=== PATIENT | female | born 1965 | race Caucasian/White ===

== ENCOUNTER 2019-11-08 09:09 | Emergency (ER) | payer BC ==
--- NOTE | 2019-11-08 09:30 | EDM.PDOC ---
ED HPI GENERAL MEDICAL PROBLEM - General Chief Complaint: General Stated Complaint: BODY ACHES AND PAIN Time Seen by Provider: 11/08/19 09:30 Source of Information: Reports: Patient History Limitations: Reports: No Limitations - History of Present Illness INITIAL COMMENTS - FREE TEXT/NARRATIVE: 54-year-old female presents to the ED with generalized myalgia in particular pain in the medial aspect of both thighs worse on the right as compared to the left. She feels almost as if the skin hurts or the veins hurt underneath the skin. She describes it as sharp poking and intermittent stabbing type pain. She is known to have neuropathy in her lower extremities. She was diagnosed with type 2 diabetes in May of this year and initially started on metformin which she could not tolerate due to the amount of diarrhea produced. Subsequently she has been using insulin and gradually her symptoms have come under good control and her blood sugars are under excellent control. Blood sugar this morning was 134. She was fine up until Friday 2 days ago when she started developed generalized myalgia in her shoulders back chest wall and lower extremities. Pain is bad enough that she cannot sleep. She did take NyQuil last night which knocked her out for a few hours for sleeping. Denies fever chills nausea or vomiting. Bowel movements are normal. She has a history of recurrent urinary tract infections when the diagnosis of diabetes was made but this seems to have cleared up. The urine is not foul-smelling and she has no dysuria urgency or frequency. She lost approximately 20 pounds of weight during her uncontrolled type 2 diabetes event. Does not feel dizzy or lightheaded. Has not eaten yet today. She has not identified any rashes in her right lower medial thigh. Onset: Sudden Onset Date: 11/06/19 Duration: Day(s):, Getting Worse Location: Reports: Generalized (Neurolyse myalgia with stabbing biting pain suggestive of neurogenic etiology. This is worse on the medial aspect of her right thigh.) Quality: Reports: Ache, Sharp, Stabbing Severity: Moderate Improves with: Reports: None (8 out of 10 Motrin did not help the pain.) Worsens with: Reports: Other Context: Reports: Other (Spontaneous occurrence). Denies: Activity, Exercise (Movement and walking seems to make it slightly worse.), Sick Contact, Trauma Associated Symptoms: Reports: Malaise, Weakness (Due to the pain.). 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: NSAIDS (Primarily ibuprofen with no relief.) Generalized Pain Score (Numeric/FACES): 5 - Related Data Allergies Allergy/AdvReac Type Severity Reaction Status Date / Time metformin Allergy Diarrhea Verified 11/08/19 09:19 Home Meds: Home Meds Acetaminophen/oxyCODONE [Percocet 325-5 MG] 2 each PO Q4H PRN #20 tab 11/08/19 [Rx] Diclofenac Sodium [Voltaren] 75 mg PO BIDMEALS #16 tab.cr 11/08/19 [Rx] Ferrous Sulfate [Iron] 325 mg PO DAILY 11/08/19 [History] Gabapentin [Neurontin] 300 mg PO DAILY 11/08/19 [History] Insulin Glargine,Hum.Rec.Anlog [Candelarioueugeniao Solostarnulfo] 19 unit SQ PCDINNER 11/08/19 [History] Insulin Glargine,Hum.Rec.Anlog [Toujeo Solostar] 23 unit SQ ACBREAKFAST 11/08/19 [History] Losartan/Hydrochlorothiazide [Losartan-HCTZ 100-12.5 MG] 12.5 - 100 mg PO DAILY 11/08/19 [History] Multivit-Min/Iron/Folic/Lutein [Centrum Silver Women Tablet] 1 tab PO DAILY 11/08/19 [History] Omeprazole 20 mg PO DAILY 11/08/19 [History] Sertraline HCl 100 mg PO DAILY 11/08/19 [History] Past Medical History Cardiovascular History: Reports: Hypertension Endocrine/Metabolic History: Reports: Diabetes, Type II (Type 2 diabetes diagnosed in May of this year initially treated with metformin which she could not tolerate due to diarrhea and currently is on insulin therapy with good control of blood sugars. Family history of diabetes.), Vitamin D Deficiency Social & Family History - Living Situation & Occupation Living situation: Reports: Occupation: Unemployed ED ROS GENERAL - Review of Systems Review Of Systems: See Below Constitutional: Reports: Malaise, Weakness, Decreased Appetite, Weight Loss (40 pound weight loss in the last 4 months after onset of diagnosis of type 2 diabetes.). Denies: Fever, Chills HEENT: Reports: No Symptoms Respiratory: Reports: No Symptoms Cardiovascular: Reports: Blood Pressure Problem Endocrine: Reports: No Symptoms GI/Abdominal: Reports: No Symptoms : Reports: Frequency Musculoskeletal: Reports: Muscle Pain, Muscle Stiffness, Other (Generalized myalgia particularly shoulders and inner thighs and buttock muscles and low back muscles.) Skin: Reports: No Symptoms Neurological: Reports: Numbness, Tingling Psychiatric: Reports: No Symptoms Hematologic/Lymphatic: Reports: No Symptoms Immunologic: Reports: No Symptoms ED EXAM, GENERAL - Physical Exam Exam: See Below Exam Limited By: No Limitations General Appearance: Alert, WD/WN, No Apparent Distress, Other (Temperature is 36.1. Heart rate is 88 in sinus respiratory is 18 BP 159/91. Pulse ox 99% on room air.) Eye Exam: Bilateral Eye: Normal Inspection (No scleral icterus or blepharal pallor.), PERRL Throat/Mouth: Other Head: Atraumatic, Other (Tongue is mildly dry and coated) Neck: Normal Inspection, Supple, Non-Tender, Full Range of Motion. No: Carotid Bruit, Lymphadenopathy (L), Lymphadenopathy (R) Respiratory/Chest: Lungs Clear, Normal Breath Sounds, No Accessory Muscle Use, Chest Non-Tender Cardiovascular: Normal Peripheral Pulses, Regular Rate, Rhythm, No Edema, No Gallop, No Murmur, No Rub Peripheral Pulses: 2+: Carotid (L), Carotid (R), Posterior Tibial (L), Posterior Tibial (R), Dorsalis Pedis (L), Dorsalis Pedis (R) GI/Abdominal: Normal Bowel Sounds, Soft, Non-Tender, No Organomegaly, No Abnormal Bruit, No Mass, Pelvis Stable. No: Guarding, Rigid, Rebound, Tender Back Exam: Normal Inspection, Full Range of Motion. No: CVA Tenderness (L), CVA Tenderness (R) Extremities: Normal Inspection, Normal Range of Motion, No Pedal Edema, Other (She has tenderness along the distribution of the medial thigh musculature and there is no rash to suggest shingles. The pain appears to be along the greater saphenous vein. However she has pain on the medial aspect is well as the quadriceps musculature of her left leg both shoulders are tender to touch as well with) Neurological: Alert ( full range of motion but painful.), Oriented, CN II-XII Intact, Normal Cognition, Normal Reflexes Psychiatric: Normal Affect, Normal Mood Skin Exam: Warm, Intact, Normal Color, No Rash Course - Vital Signs Last Recorded V/S: Last Vital Signs Temp 36.6 C 11/08/19 12:05 Pulse 76 11/08/19 12:05 Resp 18 11/08/19 12:05 BP 140/87 11/08/19 12:05 Pulse Ox 96 11/08/19 12:05 - Orders/Labs/Meds Orders: Active Orders 24 hr Category Date Time Status URINALYSIS W/MICROSCOPIC [UA W/MICROSCOPIC] [URIN] Stat Lab 11/08/19 09:56 Ordered Lactated Ringers [Ringers, Lactated] 1,000 ml Med 11/08/19 10:00 Active IV ASDIRECTED Medication Orders Lactated Ringer's (Ringers, Lactated) 1,000 mls @ 200 mls/hr IV ASDIRECTED ONOFRE Last Admin: 11/08/19 10:10 Dose: 200 mls/hr Documented by: HOOD Labs: Laboratory Tests 11/08/19 11/08/19 11/08/19 Range/Units 10:00 10:00 10:00 WBC 8.85 (3.98-10.04) K/mm3 RBC 4.16 (3.98-5.22) M/mm3 Hgb 13.0 D (11.2-15.7) gm/dl Hct 37.1 (34.1-44.9) % MCV 89.2 (79.4-94.8) fl MCH 31.3 (25.6-32.2) pg MCHC 35.0 (32.2-35.5) g/dl RDW Std Deviation 40.9 (36.4-46.3) fL Plt Count 139 L (182-369) K/mm3 MPV 12.0 (9.4-12.3) fl Neut % (Auto) 72.9 H (34.0-71.1) % Lymph % (Auto) 14.2 L (19.3-51.7) % [place] % (Auto) 11.2 (4.7-12.5) % Eos % (Auto) 1.0 (0.7-5.8) Baso % (Auto) 0.5 (0.1-1.2) % Neut # (Auto) 6.45 H (1.56-6.13) K/mm3 Lymph # (Auto) 1.26 (1.18-3.74) K/mm3 [place] # (Auto) 0.99 H (0.24-0.36) K/mm3 Eos # (Auto) 0.09 (0.04-0.36) K/mm3 Baso # (Auto) 0.04 (0.01-0.08) K/mm3 ESR 29 H (0-20) mm/hr D-Dimer, Quantitative (0.19-0.50) mg/L Sodium 136 (136-145) mEq/L Potassium 3.7 (3.5-5.1) mEq/L Chloride 100 (98-107) mEq/L Carbon Dioxide 28 (21-32) mEq/L Anion Gap 11.7 (5-15) BUN 14 (7-18) mg/dL Creatinine 0.4 L (0.55-1.02) mg/dL Est Cr Clr Drug Dosing 140.45 mL/min Estimated GFR (MDRD) > 60 (>60) mL/min BUN/Creatinine Ratio 35.0 H (14-18) Glucose 118 H (74-106) mg/dL Hemoglobin A1c (4.50-6.20) % Calcium 9.1 (8.5-10.1) mg/dL Magnesium 1.8 (1.8-2.4) mg/dl Total Bilirubin 0.6 (0.2-1.0) mg/dL AST 43 H (15-37) U/L ALT 65 H (14-59) U/L Alkaline Phosphatase 177 H (46-116) U/L Creatine Kinase 28 (26-192) U/L Total Protein 7.0 (6.4-8.2) g/dl Albumin 3.4 (3.4-5.0) g/dl Globulin 3.6 gm/dL Albumin/Globulin Ratio 0.9 L (1-2) 11/08/19 11/08/19 Range/Units 10:00 10:00 WBC (3.98-10.04) K/mm3 RBC (3.98-5.22) M/mm3 Hgb (11.2-15.7) gm/dl Hct (34.1-44.9) % MCV (79.4-94.8) fl MCH (25.6-32.2) pg MCHC (32.2-35.5) g/dl RDW Std Deviation (36.4-46.3) fL Plt Count (182-369) K/mm3 MPV (9.4-12.3) fl Neut % (Auto) (34.0-71.1) % Lymph % (Auto) (19.3-51.7) % [place] % (Auto) (4.7-12.5) % Eos % (Auto) (0.7-5.8) Baso % (Auto) (0.1-1.2) % Neut # (Auto) (1.56-6.13) K/mm3 Lymph # (Auto) (1.18-3.74) K/mm3 [place] # (Auto) (0.24-0.36) K/mm3 Eos # (Auto) (0.04-0.36) K/mm3 Baso # (Auto) (0.01-0.08) K/mm3 ESR (0-20) mm/hr D-Dimer, Quantitative 0.89 H (0.19-0.50) mg/L Sodium (136-145) mEq/L Potassium (3.5-5.1) mEq/L Chloride (98-107) mEq/L Carbon Dioxide (21-32) mEq/L Anion Gap (5-15) BUN (7-18) mg/dL Creatinine (0.55-1.02) mg/dL Est Cr Clr Drug Dosing mL/min Estimated GFR (MDRD) (>60) mL/min BUN/Creatinine Ratio (14-18) Glucose (74-106) mg/dL Hemoglobin A1c 8.00 H (4.50-6.20) % Calcium (8.5-10.1) mg/dL Magnesium (1.8-2.4) mg/dl Total Bilirubin (0.2-1.0) mg/dL AST (15-37) U/L ALT (14-59) U/L Alkaline Phosphatase (46-116) U/L Creatine Kinase (26-192) U/L Total Protein (6.4-8.2) g/dl Albumin (3.4-5.0) g/dl Globulin gm/dL Albumin/Globulin Ratio (1-2) Meds: Medications Generic Name Dose Route Start Last Admin Trade Name Anita PRN Reason Stop Dose Admin Lactated Ringer's 1,000 mls @ 200 mls/hr 11/08/19 10:00 11/08/19 10:10 Ringers, Lactated IV 200 mls/hr ASDIRECTED ONOFRE Administration Discontinued Medications Generic Name Dose Route Start Last Admin Trade Name Anita PRN Reason Stop Dose Admin Hydromorphone HCl 0.5 mg 11/08/19 09:55 11/08/19 10:09 Dilaudid IVPUSH 11/08/19 09:56 0.5 mg ONETIME ONE Administration Ondansetron HCl 4 mg 11/08/19 09:55 11/08/19 10:07 Zofran IVPUSH 11/08/19 09:56 4 mg ONETIME ONE Administration - Radiology Interpretation Free Text/Narrative:: 54-year-old female presents to the ED for evaluation of pain which is generalized. Started 2 days ago of sudden onset and is primarily affecting her lower extremities particularly medial thigh muscles and medial hamstring musculature bilaterally. Her quadriceps are tender to touch as over her deltoids and shoulder girdle muscles. Possible polymyalgia rheumatica but she has no fever. Recently diagnosed with type 2 diabetes in May of this year and finally gain control with insulin after failed treatment with metformin. Blood sugar this morning was 134. She has not yet eaten or drank today and tongue is mildly dry and coated. Plan IV Ringer's lactate at 200 mils per hour. Given Dilaudid 0.5 mg IV for pain relief with Zofran 4 mg IV. Toradol will be withheld at this point time since I do not know her kidney function. She will have urinalysis obtained as well as routine labs including a total CPK and sed rate. Suspect overall this is likely neurogenic pain as her blood sugars are normal normalizing and likely had uncontrolled diabetes for several weeks or months prior to diagnosis. She is on gabapentin 300 mg once daily which may have to be increased. - Re-Assessments/Exams Free Text/Narrative Re-Assessment/Exam: 11/08/19 10:47 Labs reveal a total white count of 8.85 with 73% neutrophils and no bands cells reported. Hemoglobin is 13.0 with hematocrit of 37.1. Platelet count is 139,000. D-dimer did come back mildly elevated at 0.89. Sodium 136 with a potassium of 3.7. Chloride is 100 with a bicarb of 28. Anion gap is 11.7. BUN is 14 with a creatinine of 0.4 GFR is greater than 60. Glucose is 118 hemoglobin A1c is 8.0 calcium is 9.1 with a magnesium of 1.8. Total bilirubin is normal at 0.6. AST mildly elevated at 43 and ALT mildly elevated at 65. Alk phos stays elevated at 177. CPK total is 28. Total protein is 7.0 albumin fraction is 3.4. Sed rate is pending. Due to the elevated d-dimer she will have a ultrasound of her right lower extremity as her pain is along the greater saphenous vein with some nodularity palpable in this area. 11/08/19 11:30 Sedamentation rate came back at 29. Doppler ultrasound of the right lower extremity reveals no clots within the common femoral or greater saphenous vein. Patient advised of the findings and reassured. I suspect her pain is neurogenic in origin likely due to prolonged hyperglycemia and once the sugars have come under control the nerves will often act up for a period of 6 to 12 weeks. Suggest increasing her gabapentin to 600 mg at bedtime and 300 mg in the morning until things settle down and then she can back down on the dosage. Percocet tabs 5/325 mg 1 or 2 at bedtime primarily to help sleep. I am also going to place her on Voltaren 75 mg twice daily for the next 8 days to reduce pain and inflammation as well. Follow-up with your personal care provider Dorothea Ivory within the next week. Departure - Departure Time of Disposition: 11:53 Disposition: Home, Self-Care 01 Condition: Fair Clinical Impression: Neuralgia due to secondary diabetes mellitus - Discharge Information *PRESCRIPTION DRUG MONITORING PROGRAM REVIEWED*: Not Applicable *COPY OF PRESCRIPTION DRUG MONITORING REPORT IN PATIENT MERI: Not Applicable Prescriptions: Acetaminophen/oxyCODONE [Percocet 325-5 MG] 2 each PO Q4H PRN #20 tab PRN Reason: Neuralgia pain relief Diclofenac Sodium [Voltaren] 75 mg PO BIDMEALS #16 tab.cr Instructions: Peripheral Neuropathy Referrals: Dorothea Ivory PA-C [Primary Care Provider] - Forms: ED Department Discharge Additional Instructions: Evaluation in the emergency room today in regards to generalized myalgia or pain in large muscle groups particularly the medial thighs and hamstring muscle distributions in both legs worse on the right side than on the left. He also appreciated pain in your deltoids and shoulder girdle muscles as well. The pain is fleeting sharp stabbing and indicates that there is inflammation of the underlying nerves which is likely due to recent diagnosis of diabetes and control of blood sugars. If the nerves were used to a very high sugar level for prolonged period of time they have to adjust to normal sugars and will often act up in terms of causing pain anywhere from 6 to 12 weeks while they make their readjustment to normal blood sugars. All the lab test done and through the ED today are essentially normal showing no signs of inflammation of the muscle or joints. Ultrasound of your right lower extremity revealed no clot within the greater saphenous vein or any of the veins in your lower extremity. Suggest increase your gabapentin to 600 mg at bedtime for 1 week and if you are still having pain may add 300 mg in the morning as well. In the meantime use Voltaren 75 mg twice daily for the next 8 days to reduce pain and inflammation taking 1 tablet with breakfast and 1 tablet with supper time daily. Percocet tabs 5/325 mg 1 or 2 tablets if necessary for pain relief every 4-6 hours primarily at bedtime to allow sleep until this pain and inflammation settles down. Suggest follow-up with your personal care provider Dorothea Ivory sometime within the next week to make sure you are getting better. Sepsis Event Note (ED) - Focused Exam Vital Signs: Vital Signs Temp Pulse Resp BP Pulse Ox 11/08/19 12:05 36.6 C 76 18 140/87 96 11/08/19 09:15 36.1 C 88 18 159/91 H 99 - My Orders Last 24 Hours: My Active Orders 11/08/19 09:56 URINALYSIS W/MICROSCOPIC [UA W/MICROSCOPIC] [URIN] Stat 11/08/19 10:00 Lactated Ringers [Ringers, Lactated] 1,000 ml IV ASDIRECTED - Assessment/Plan Last 24 Hours: My Active Orders 11/08/19 09:56 URINALYSIS W/MICROSCOPIC [UA W/MICROSCOPIC] [URIN] Stat 11/08/19 10:00 Lactated Ringers [Ringers, Lactated] 1,000 ml IV ASDIRECTED
[2019-11-08] MEDS ORDERED: HYDROmorphone 0.5 MG/0.5 ML Syringe IVPUSH ONE (09:55)
[2019-11-08] MEDS ORDERED: Ondansetron 4 MG/2 ML SDV IVPUSH ONE (09:55)
[2019-11-08] MEDS ORDERED: Lactated Ringers 1,000 ML IV SCH (10:00)
--- NOTE | 2019-11-08 12:07 | US ---
Right lower extremity deep venous ultrasound: Duplex and color Doppler evaluation was obtained of the right common femoral, superficial femoral, proximal greater saphenous, popliteal, posterior tibial and peroneal veins. Left common femoral vein was also evaluated. Comparison: No prior venous imaging is available. Findings: Normal phasic flow, augmentation and compression is seen. Impression: 1. No evidence of deep venous thrombosis within the right lower extremity or within the left common femoral vein. Diagnostic code #1 This report was dictated in MDT
[2019-11-08 12:08] VITALS: BP 140/87; PULSE 76
== END 2019-11-08 12:14 | disposition home or self-care (01) ==
LOC: JD.ED 09:09
DX: E11.42 Type 2 diabetes mellitus with diabetic polyneuropathy (principal); I10 Essential (primary) hypertension; Z79.4 Long term (current) use of insulin; Z79.899 Other long term (current) drug therapy
CPT/HCPCS: 36415; 80053; 82550; 83036; 83735; 85025; 85379; 85652; 93971; 96361; 96374; 96375; 99284; J1170; J2405; J7120

== ENCOUNTER 2019-12-09 16:28 | Emergency (ER) | payer BC ==
[2019-12-09] MEDS ORDERED: Sodium Chloride 0.9% 10 ML Syringe FLUSH PRN (16:45)
[2019-12-09 16:50] VITALS: BP 98/74; PULSE 104
--- NOTE | 2019-12-09 17:12 | EDM.PDOC ---
ED HPI GENERAL MEDICAL PROBLEM - General Chief Complaint: Chest Pain Stated Complaint: SOB, HURTS TO BREATHE,CHEST PAIN Time Seen by Provider: 12/09/19 16:39 Source of Information: Reports: Patient, RN Notes Reviewed History Limitations: Reports: No Limitations - History of Present Illness INITIAL COMMENTS - FREE TEXT/NARRATIVE: Patient is a 54-year-old female who presents to the ED for the evaluation of a few different complaints. She notes that since last night she developed some mid back pain, that has worked its way to the front of her chest. She states she has been having pain with deep breaths, and states that she just cannot take a deep enough breath. She states that she has a history of pleurisy in the past, and feels that the pain is similar to that. She states she is also feeling quite fatigued, dizzy and weak, she has a somewhat low blood pressure of 98/74 while laying on the ER cot O2 sats are anywhere from 91 to 94% on room air. Her pulse rate is slightly tachycardic at 104. She is afebrile at 97.3 F. Respiratory rate is 25 breaths/min. She appears to be in no obvious respiratory distress. She is not had any fevers or chills, she has not been around anyone that is been known to be sick. Her primary care provider is Dorothea Ivory. Middle Chest Pain Score (Numeric/FACES): 5 - Related Data Allergies Allergy/AdvReac Type Severity Reaction Status Date / Time metformin Allergy Diarrhea Verified 12/09/19 16:59 Home Meds: Home Meds Ferrous Sulfate [Iron] 325 mg PO DAILY 11/08/19 [History] Gabapentin [Neurontin] 300 mg PO BID 11/08/19 [History] Insulin Glargine,Hum.Rec.Anlog [Toujeo Solostar] 19 unit SQ PCDINNER 11/08/19 [History] Insulin Glargine,Hum.Rec.Anlog [Toujeo Solostar] 25 unit SQ ACBREAKFAST 11/08/19 [History] Losartan/Hydrochlorothiazide [Losartan-HCTZ 100-12.5 MG] 12.5 - 100 mg PO DAILY 11/08/19 [History] Multivit-Min/Iron/Folic/Lutein [Centrum Silver Women Tablet] 1 tab PO DAILY 11/08/19 [History] Omeprazole 20 mg PO DAILY 11/08/19 [History] Sertraline HCl 100 mg PO DAILY 11/08/19 [History] Acetaminophen/oxyCODONE [Percocet 325-5 MG] 1 each PO Q6H PRN #10 tab 12/09/19 [Rx] Azithromycin 250 mg PO ASDIRECTED #6 tablet 12/09/19 [Rx] Diclofenac Sodium [Voltaren] 75 mg PO BIDMEALS #16 tab.cr 12/09/19 [Rx] Potassium Chloride [Klor-Con M20] 20 meq PO DAILY 12/09/19 [History] Past Medical History HEENT History: Reports: Impaired Vision Other HEENT History: wears eyeglasses. Cardiovascular History: Reports: Hypertension Respiratory History: Reports: Bronchitis, Recurrent Gastrointestinal History: Reports: GERD, Helicobacter Pylori Genitourinary History: Reports: Pyelonephritis, UTI, Recurrent MATHEMATICIAN RESEARCH History: Reports: Musculoskeletal History: Reports: Fracture Psychiatric History: Reports: Anxiety, Depression Endocrine/Metabolic History: Reports: Diabetes, Type II, Vitamin D Deficiency Hematologic History: Reports: Anemia - Infectious Disease History Infectious Disease History: Reports: Chicken Pox, Measles - Past Surgical History Musculoskeletal Surgical History: Reports: ORIF, Other (See Below) Other Musculoskeletal Surgeries/Procedures:: L) ankle Social & Family History - Tobacco Use Smoking Status *Q: Current Every Day Smoker Years of Tobacco use: 10 Packs/Tins Daily: 0.5 - Caffeine Use Caffeine Use: Reports: Coffee, Energy Drinks, Soda - Recreational Drug Use Recreational Drug Use: No - Living Situation & Occupation Living situation: Reports: Occupation: Unemployed ED ROS GENERAL - Review of Systems Review Of Systems: Comprehensive ROS is negative, except as noted in HPI. ED EXAM, GENERAL - Physical Exam Exam: See Below Exam Limited By: No Limitations General Appearance: Alert, WD/WN, No Apparent Distress Eye Exam: Bilateral Eye: EOMI, Normal Inspection, PERRL Throat/Mouth: Normal Inspection, Normal Lips, Normal Teeth, Normal Gums, Normal Oropharynx, Normal Voice, No Airway Compromise Head: Atraumatic, Normocephalic Neck: Normal Inspection Respiratory/Chest: No Respiratory Distress, Lungs Clear, Normal Breath Sounds, No Accessory Muscle Use, Chest Non-Tender Peripheral Pulses: 2+: Radial (L), Radial (R) GI/Abdominal: Normal Bowel Sounds, Soft, Non-Tender, No Distention, No Mass Extremities: Normal Inspection, Normal Capillary Refill Neurological: Alert, Oriented, Normal Cognition, No Motor/Sensory Deficits Psychiatric: Normal Affect, Normal Mood Skin Exam: Warm, Dry, Intact, Normal Color, No Rash EKG INTERPRETATION EKG Date: 12/09/19 Time: 16:43 Rhythm: NSR (sinus tach) Rate (Beats/Min): 102 [place]: Normal P-Wave: Present QRS: Normal ST-T: Normal QT: Normal Comparison: NA - No Prior EKG EKG Interpretation Comments: No obvious ischemia or acute ST changes noted, reviewed by myself and Dr. James. Course - Vital Signs Last Recorded V/S: Last Vital Signs Temp 97.3 F 12/09/19 16:39 Pulse 104 H 12/09/19 16:39 Resp 25 H 12/09/19 16:39 BP 98/74 12/09/19 16:39 Pulse Ox 91 L 12/09/19 16:39 - Orders/Labs/Meds Orders: Active Orders 24 hr Category Date Time Status EKG Documentation Completion [RC] STAT Care 12/09/19 16:43 Active Peripheral IV Care [RC] . DIRECTED Care 12/09/19 16:45 Active CULTURE BLOOD [BC] Stat Lab 12/09/19 17:09 Received CULTURE BLOOD [BC] Stat Lab 12/09/19 17:14 Received HYDROmorphone [Dilaudid] Med 12/09/19 18:49 Once 0.5 mg IVPUSH ONETIME ONE Sodium Chloride 0.9% [Normal Saline] 1,000 ml Med 12/09/19 17:13 Active IV ONETIME Sodium Chloride 0.9% [Saline Flush] Med 12/09/19 16:45 Active 10 ml FLUSH ASDIRECTED PRN Blood Culture x2 Reflex Set [OM.PC] Stat Oth 12/09/19 16:43 Ordered Peripheral IV Insertion Adult [OM.PC] Routine Oth 12/09/19 16:45 Ordered Medication Orders Sodium Chloride (Normal Saline) 1,000 mls @ 200 mls/hr IV ONETIME ONE Stop: 12/09/19 22:12 Last Admin: 12/09/19 17:43 Dose: 200 mls/hr Documented by: SHARDA Sodium Chloride (Saline Flush) 10 ml FLUSH ASDIRECTED PRN PRN Reason: Keep Vein Open Last Admin: 12/09/19 17:40 Dose: 10 ml Documented by: SHARDA Labs: Laboratory Tests 12/09/19 12/09/19 12/09/19 Range/Units 17:09 17:09 17:09 WBC 14.69 H (3.98-10.04) K/mm3 RBC 3.75 L (3.98-5.22) M/mm3 Hgb 11.8 (11.2-15.7) gm/dl Hct 35.5 (34.1-44.9) % MCV 94.7 D (79.4-94.8) fl MCH 31.5 (25.6-32.2) pg MCHC 33.2 (32.2-35.5) g/dl RDW Std Deviation 48.1 H (36.4-46.3) fL Plt Count 143 L (182-369) K/mm3 MPV 11.3 (9.4-12.3) fl Neutrophils % (Manual) 74 H (40-60) % Band Neutrophils % 1 (0-10) % Lymphocytes % (Manual) 14 L (20-40) % Atypical Lymphs % 0 % Monocytes % (Manual) 10 (2-10) % Eosinophils % (Manual) 1 (0.7-5.8) % Basophils % (Manual) 0 L (0.1-1.2) Platelet Estimate Adequate Plt Morphology Comment Normal Anisocytosis 1+ slight RBC Morph Comment Not Reportable PT 10.8 (9.7-11.7) SECONDS INR 1.01 APTT 29 (22-31) SECONDS D-Dimer, Quantitative 0.38 (0.19-0.50) mg/L Sodium (136-145) mEq/L Potassium (3.5-5.1) mEq/L Chloride (98-107) mEq/L Carbon Dioxide (21-32) mEq/L Anion Gap (5-15) BUN (7-18) mg/dL Creatinine (0.55-1.02) mg/dL Est Cr Clr Drug Dosing mL/min Estimated GFR (MDRD) (>60) mL/min BUN/Creatinine Ratio (14-18) Glucose (74-106) mg/dL Lactic Acid (0.4-2.0) mmol/L Calcium (8.5-10.1) mg/dL Magnesium (1.8-2.4) mg/dl Ferritin (8-252) ng/ml Total Bilirubin (0.2-1.0) mg/dL AST (15-37) U/L ALT (14-59) U/L Alkaline Phosphatase (46-116) U/L Lactate Dehydrogenase (81-234) U/L Troponin I (0.00-0.056) ng/mL C-Reactive Protein 16.4 H* (<1.0) mg/dL NT-Pro-B Natriuret Pep (0-125) pg/mL Total Protein (6.4-8.2) g/dl Albumin (3.4-5.0) g/dl Globulin gm/dL Albumin/Globulin Ratio (1-2) SARS Virus RNA (PCR) (NEGATIVE) 12/09/19 12/09/19 12/09/19 Range/Units 17:09 17:09 17:09 WBC (3.98-10.04) K/mm3 RBC (3.98-5.22) M/mm3 Hgb (11.2-15.7) gm/dl Hct (34.1-44.9) % MCV (79.4-94.8) fl MCH (25.6-32.2) pg MCHC (32.2-35.5) g/dl RDW Std Deviation (36.4-46.3) fL Plt Count (182-369) K/mm3 MPV (9.4-12.3) fl Neutrophils % (Manual) (40-60) % Band Neutrophils % (0-10) % Lymphocytes % (Manual) (20-40) % Atypical Lymphs % % Monocytes % (Manual) (2-10) % Eosinophils % (Manual) (0.7-5.8) % Basophils % (Manual) (0.1-1.2) Platelet Estimate Plt Morphology Comment Anisocytosis RBC Morph Comment PT (9.7-11.7) SECONDS INR APTT (22-31) SECONDS D-Dimer, Quantitative (0.19-0.50) mg/L Sodium 132 L (136-145) mEq/L Potassium 4.3 (3.5-5.1) mEq/L Chloride 96 L (98-107) mEq/L Carbon Dioxide 30 (21-32) mEq/L Anion Gap 10.3 (5-15) BUN 18 (7-18) mg/dL Creatinine 0.7 (0.55-1.02) mg/dL Est Cr Clr Drug Dosing 80.26 mL/min Estimated GFR (MDRD) > 60 (>60) mL/min BUN/Creatinine Ratio 25.7 H (14-18) Glucose 116 H (74-106) mg/dL Lactic Acid (0.4-2.0) mmol/L Calcium 8.7 (8.5-10.1) mg/dL Magnesium 2.1 (1.8-2.4) mg/dl Ferritin 987 H (8-252) ng/ml Total Bilirubin 1.2 H (0.2-1.0) mg/dL AST 27 (15-37) U/L ALT 38 (14-59) U/L Alkaline Phosphatase 126 H (46-116) U/L Lactate Dehydrogenase 129 (81-234) U/L Troponin I < 0.017 (0.00-0.056) ng/mL C-Reactive Protein (<1.0) mg/dL NT-Pro-B Natriuret Pep 408 H (0-125) pg/mL Total Protein 6.9 (6.4-8.2) g/dl Albumin 3.4 (3.4-5.0) g/dl Globulin 3.5 gm/dL Albumin/Globulin Ratio 1.0 (1-2) SARS Virus RNA (PCR) (NEGATIVE) 12/09/19 12/09/19 Range/Units 17:09 17:37 WBC (3.98-10.04) K/mm3 RBC (3.98-5.22) M/mm3 Hgb (11.2-15.7) gm/dl Hct (34.1-44.9) % MCV (79.4-94.8) fl MCH (25.6-32.2) pg MCHC (32.2-35.5) g/dl RDW Std Deviation (36.4-46.3) fL Plt Count (182-369) K/mm3 MPV (9.4-12.3) fl Neutrophils % (Manual) (40-60) % Band Neutrophils % (0-10) % Lymphocytes % (Manual) (20-40) % Atypical Lymphs % % Monocytes % (Manual) (2-10) % Eosinophils % (Manual) (0.7-5.8) % Basophils % (Manual) (0.1-1.2) Platelet Estimate Plt Morphology Comment Anisocytosis RBC Morph Comment PT (9.7-11.7) SECONDS INR APTT (22-31) SECONDS D-Dimer, Quantitative (0.19-0.50) mg/L Sodium (136-145) mEq/L Potassium (3.5-5.1) mEq/L Chloride (98-107) mEq/L Carbon Dioxide (21-32) mEq/L Anion Gap (5-15) BUN (7-18) mg/dL Creatinine (0.55-1.02) mg/dL Est Cr Clr Drug Dosing mL/min Estimated GFR (MDRD) (>60) mL/min BUN/Creatinine Ratio (14-18) Glucose (74-106) mg/dL Lactic Acid 0.5 (0.4-2.0) mmol/L Calcium (8.5-10.1) mg/dL Magnesium (1.8-2.4) mg/dl Ferritin (8-252) ng/ml Total Bilirubin (0.2-1.0) mg/dL AST (15-37) U/L ALT (14-59) U/L Alkaline Phosphatase (46-116) U/L Lactate Dehydrogenase (81-234) U/L Troponin I (0.00-0.056) ng/mL C-Reactive Protein (<1.0) mg/dL NT-Pro-B Natriuret Pep (0-125) pg/mL Total Protein (6.4-8.2) g/dl Albumin (3.4-5.0) g/dl Globulin gm/dL Albumin/Globulin Ratio (1-2) SARS Virus RNA (PCR) Negative (NEGATIVE) Meds: Medications Generic Name Dose Route Start Last Admin Trade Name Freq PRN Reason Stop Dose Admin Sodium Chloride 1,000 mls @ 200 mls/hr 12/09/19 17:13 12/09/19 17:43 Normal Saline IV 12/09/19 22:12 200 mls/hr ONETIME ONE Administration Sodium Chloride 10 ml 12/09/19 16:45 12/09/19 17:40 Saline Flush FLUSH 10 ml ASDIRECTED PRN Administration Keep Vein Open - Re-Assessments/Exams Free Text/Narrative Re-Assessment/Exam: 12/09/19 17:12 Patient presents to the ED for evaluation of her shortness of breath and chest pain. Labs will be obtained along with a EKG, chest x-ray and coronavirus testing for delineation of symptoms. Patient's last visit she did have a mildly elevated d-dimer at 0.89. Patient's blood pressure is minimally low systolically in the 90s. She will get light IV fluids to helps supplement this. 12/09/19 18:25 Labs have started to result, CBC shows a mildly elevated white count of 14.69 with 74% neutrophils and 1 band. CRP is elevated at 16.4, BNP mildly elevated at 408. Troponin is negative. Sodium mildly low at 132, otherwise no worrisome abnormalities. Chest x-ray was read as slight right basilar atelectasis. Although with her slightly elevated white count and dyspnea, we will likely sterling at her for an early pneumonia. Coronavirus testing is still pending at this time. 12/09/19 18:50 Patient's COVID-19 test is negative at today's visit. We will discharge her home with general recommendations. Departure - Departure Time of Disposition: 18:50 Disposition: Home, Self-Care 01 Condition: Good Clinical Impression: Pleurisy Pneumonia Qualifiers: Pneumonia type: due to unspecified organism Laterality: right Lung location: lower lobe of lung Qualified Code(s): J18.9 - Pneumonia, unspecified organism - Discharge Information *PRESCRIPTION DRUG MONITORING PROGRAM REVIEWED*: No *COPY OF PRESCRIPTION DRUG MONITORING REPORT IN PATIENT MERI: No Prescriptions: Azithromycin 250 mg PO ASDIRECTED #6 tablet Acetaminophen/oxyCODONE [Percocet 325-5 MG] 1 each PO Q6H PRN #10 tab PRN Reason: Pain Diclofenac Sodium [Voltaren] 75 mg PO BIDMEALS #16 tab.cr Instructions: Pleurisy, [id number] Referrals: Dorothea Ivory PA-C [Primary Care Provider] - Forms: ED Department Discharge Additional Instructions: You were evaluated in the ER today for your chest pain and shortness of breath. Your COVID-19 test results were negative at today's visit. Your other laboratory evaluation demonstrated a mildly elevated white count, and a area consistent with infiltrates on your chest x-ray which is suggestive of early pneumonia. You have been started on azithromycin for management of this. Please take as directed. You were given a prescription for Voltaren, please take as directed until gone. You were given a prescription for a strong pain medication, oxycodone/acetaminophen 5/325 mg., please take 1 tab every 6 hours as needed for pain not relieved by Tylenol or ibuprofen alone. Please note this medication does contain Tylenol in it, so do not take more than 4000 mg in a 24-hour time span. These medications can be addictive, so please take as few as possible to achieve adequate pain control. These meds can also be quite constipating, recommend that you increase your oral fluid intake and take a stool softener like MiraLAX while taking these medications. Do not drive while taking this medication. You will need to follow-up with your regular care provider, Dorothea Ivory next week to make sure your symptoms are getting better as expected. Please return to the ER at any time if your symptoms change or worsen. Sepsis Event Note (ED) - Evaluation Sepsis Screening Result: No Definite Risk - Focused Exam Vital Signs: Vital Signs Temp Pulse Resp BP Pulse Ox 12/09/19 16:39 97.3 F 104 H 25 H 98/74 91 L - My Orders Last 24 Hours: My Active Orders 12/09/19 16:43 EKG Documentation Completion [RC] STAT Blood Culture x2 Reflex Set [OM.PC] Stat 12/09/19 16:45 Peripheral IV Care [RC] . DIRECTED Sodium Chloride 0.9% [Saline Flush] 10 ml FLUSH ASDIRECTED PRN Peripheral IV Insertion Adult [OM.PC] Routine 12/09/19 17:09 CULTURE BLOOD [BC] Stat 12/09/19 17:13 Sodium Chloride 0.9% [Normal Saline] 1,000 ml IV ONETIME 12/09/19 17:14 CULTURE BLOOD [BC] Stat 12/09/19 18:49 HYDROmorphone [Dilaudid] 0.5 mg IVPUSH ONETIME ONE - Assessment/Plan Last 24 Hours: My Active Orders 12/09/19 16:43 EKG Documentation Completion [RC] STAT Blood Culture x2 Reflex Set [OM.PC] Stat 12/09/19 16:45 Peripheral IV Care [RC] . DIRECTED Sodium Chloride 0.9% [Saline Flush] 10 ml FLUSH ASDIRECTED PRN Peripheral IV Insertion Adult [OM.PC] Routine 12/09/19 17:09 CULTURE BLOOD [BC] Stat 12/09/19 17:13 Sodium Chloride 0.9% [Normal Saline] 1,000 ml IV ONETIME 12/09/19 17:14 CULTURE BLOOD [BC] Stat 12/09/19 18:49 HYDROmorphone [Dilaudid] 0.5 mg IVPUSH ONETIME ONE
[2019-12-09] MEDS ORDERED: Sodium Chloride 0.9% 1,000 ML IV ONE (17:13)
--- NOTE | 2019-12-09 17:51 | CR ---
Chest: Portable view of the chest was obtained. Comparison: Prior chest x-ray of 05/24/19. Heart size appears within normal limits for portable technique. Slight tortuosity of the thoracic aorta is noted. Minimal atelectasis is seen within the right lung base. Lungs otherwise are clear. Bony structures are grossly intact. Impression: 1. Slight right basilar atelectasis. 2. Nothing acute is otherwise seen on portable chest x-ray. Diagnostic code #2 This report was dictated in MDT
[2019-12-09] MEDS ORDERED: HYDROmorphone 0.5 MG/0.5 ML Syringe IVPUSH ONE (18:49)
== END 2019-12-09 19:15 | disposition home or self-care (01) ==
LOC: JD.ED 16:28
DX: J18.9 Pneumonia, unspecified organism (principal); I10 Essential (primary) hypertension; E11.9 Type 2 diabetes mellitus without complications; K21.9 Gastro-esophageal reflux disease without esophagitis; F41.9 Anxiety disorder, unspecified; F32.9 Major depressive disorder, single episode, unspecified; F17.210 Nicotine dependence, cigarettes, uncomplicated; Z20.828 Contact with and (suspected) exposure to other viral communicable diseases; Z88.8 Allergy status to other drugs, medicaments and biological substances; Z79.899 Other long term (current) drug therapy
CPT/HCPCS: 36415; 71045; 80053; 82728; 83605; 83615; 83735; 83880; 84484; 85007; 85027; 85379; 85610; 85730; 86140; 87040; 87635; 93005; 96360; 99285; J7030; 93010; 99284; U0002

== ENCOUNTER 2019-12-20 17:20 | Emergency (ER) | payer BC ==
[2019-12-20 17:37] VITALS: BP 149/91; PULSE 105
[2019-12-20] MEDS ORDERED: Sodium Chloride 0.9% 10 ML Syringe FLUSH PRN ×2 (18:19→19:30)
[2019-12-20] MEDS ORDERED: Ketorolac 30 MG/ML SDV IVPUSH ONE (18:26)
[2019-12-20] MEDS ORDERED: HYDROmorphone 0.5 MG/0.5 ML Syringe IVPUSH ONE ×2 (18:27→21:03)
[2019-12-20] MEDS ORDERED: Ondansetron 4 MG/2 ML SDV IVPUSH ONE (18:30)
--- NOTE | 2019-12-20 18:44 | EDM.PDOC ---
ED HPI GENERAL MEDICAL PROBLEM - General Chief Complaint: Chest Pain Stated Complaint: CHEST PAIN & SHORTNESS OF BREATHE Time Seen by Provider: 12/20/19 18:16 Source of Information: Reports: Patient History Limitations: Reports: No Limitations - History of Present Illness INITIAL COMMENTS - FREE TEXT/NARRATIVE: Patient is a 54-year-old female presenting to the emergency department with complaints of left sided chest pain with breathing. She describes it as a sharp stabbing pain that is present only with breathing. When she holds her breath, the pain is gone. Symptoms began this morning upon waking. She states that she feels short of breath because it hurts to take a deep breath. She has recently been treated for pneumonia and pleurisy with azithromycin, diclofenac, and Percocets. She completed this treatment a few days ago. Patient states she does have a history of pleurisy prior to her diagnosis 11 days ago. She was doing quite well until this morning. She denies fever or chills and has had no known sick contacts. Patient's primary care provider is ANDREI Alexandre. Left Chest Pain Score (Numeric/FACES): 10 - Related Data Allergies Allergy/AdvReac Type Severity Reaction Status Date / Time metformin Allergy Diarrhea Verified 12/20/19 17:36 Home Meds: Home Meds Ferrous Sulfate [Iron] 325 mg PO DAILY 11/08/19 [History] Gabapentin [Neurontin] 300 mg PO BID 11/08/19 [History] Insulin Glargine,Hum.Rec.Anlog [Toujeo Solostar] 19 unit SQ PCDINNER 11/08/19 [History] Insulin Glargine,Hum.Rec.Anlog [Toujeo Solostar] 25 unit SQ ACBREAKFAST 11/08/19 [History] Losartan/Hydrochlorothiazide [Losartan-HCTZ 100-12.5 MG] 12.5 - 100 mg PO DAILY 11/08/19 [History] Multivit-Min/Iron/Folic/Lutein [Centrum Silver Women Tablet] 1 tab PO DAILY 11/08/19 [History] Omeprazole 20 mg PO DAILY 11/08/19 [History] Sertraline HCl 100 mg PO DAILY 11/08/19 [History] Acetaminophen/oxyCODONE [Percocet 325-5 MG] 1 each PO Q6H PRN #10 tab 12/09/19 [Rx] Diclofenac Sodium [Voltaren] 75 mg PO BIDMEALS #16 tab.cr 12/09/19 [Rx] Potassium Chloride [Klor-Con M20] 20 meq PO DAILY 12/09/19 [History] Acetaminophen/oxyCODONE [Percocet 325-5 MG] 1 - 2 each PO Q6H PRN #15 tab 12/20/19 [Rx] Diclofenac Sodium [Voltaren] 75 mg PO BIDMEALS #14 tab.cr 12/20/19 [Rx] Past Medical History HEENT History: Reports: Impaired Vision Other HEENT History: wears eyeglasses. 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: Musculoskeletal History: Reports: Fracture Psychiatric History: Reports: Anxiety, Depression Endocrine/Metabolic History: Reports: Diabetes, Type II, Vitamin D Deficiency Hematologic History: Reports: Anemia - Infectious Disease History Infectious Disease History: Reports: Chicken Pox, Measles - Past Surgical History Musculoskeletal Surgical History: Reports: ORIF, Other (See Below) Other Musculoskeletal Surgeries/Procedures:: L) ankle Social & Family History - Tobacco Use Smoking Status *Q: Current Every Day Smoker Years of Tobacco use: 10 Packs/Tins Daily: 0.5 - Caffeine Use Caffeine Use: Reports: None - Recreational Drug Use Recreational Drug Use: No - Living Situation & Occupation Living situation: Reports: Occupation: Unemployed ED ROS GENERAL - Review of Systems Review Of Systems: See Below Constitutional: Reports: No Symptoms. Denies: Fever, Chills, Weakness HEENT: Reports: No Symptoms Respiratory: Reports: Shortness of Breath, Pleuritic Chest Pain. Denies: Cough Cardiovascular: Reports: No Symptoms. Denies: Lightheadedness Endocrine: Reports: No Symptoms GI/Abdominal: Reports: No Symptoms. Denies: Abdominal Pain, Nausea, Vomiting : Reports: No Symptoms Musculoskeletal: Reports: No Symptoms Skin: Reports: No Symptoms Neurological: Reports: No Symptoms Psychiatric: Reports: No Symptoms Hematologic/Lymphatic: Reports: No Symptoms Immunologic: Reports: No Symptoms ED EXAM, GENERAL - Physical Exam Exam: See Below General Appearance: Alert, Mild Distress Respiratory/Chest: No Respiratory Distress, Lungs Clear, Normal Breath Sounds, No Accessory Muscle Use, Other (Tenderness to palpation of the left lower chest wall.) Cardiovascular: Normal Peripheral Pulses, Regular Rate, Rhythm, No Edema, No Gallop, No JVD, No Murmur, No Rub GI/Abdominal: Normal Bowel Sounds, Soft, Non-Tender, No Organomegaly, No Dist ention, No Abnormal Bruit, No Mass Neurological: Alert, Oriented, CN II-XII Intact, Normal Cognition, Normal Gait, Normal Reflexes, No Motor/Sensory Deficits Psychiatric: Normal Affect, Normal Mood Skin Exam: Warm, Dry, Intact, Normal Color, No Rash Course - Vital Signs Last Recorded V/S: Last Vital Signs Temp 97.5 F 12/20/19 17:33 Pulse 105 H 12/20/19 17:33 Resp 24 H 12/20/19 17:33 BP 149/91 H 12/20/19 17:33 Pulse Ox 96 12/20/19 17:33 - Orders/Labs/Meds Orders: Active Orders 24 hr Category Date Time Status CORONAVIRUS COVID-19 PCR PHL Routine Lab 12/20/19 21:59 Received Saline Lock Insert [OM.PC] Routine Oth 12/20/19 18:19 Ordered Labs: Laboratory Tests 12/20/19 12/20/19 12/20/19 Range/Units 17:37 17:37 17:37 WBC 12.35 H (3.98-10.04) K/mm3 RBC 3.53 L (3.98-5.22) M/mm3 Hgb 11.0 L (11.2-15.7) gm/dl Hct 33.8 L (34.1-44.9) % MCV 95.8 H (79.4-94.8) fl MCH 31.2 (25.6-32.2) pg MCHC 32.5 (32.2-35.5) g/dl RDW Std Deviation 47.6 H (36.4-46.3) fL Plt Count 391 H D (182-369) K/mm3 MPV 9.9 (9.4-12.3) fl Neut % (Auto) 74.4 H (34.0-71.1) % Lymph % (Auto) 15.4 L (19.3-51.7) % [place] % (Auto) 8.2 (4.7-12.5) % Eos % (Auto) 1.4 (0.7-5.8) Baso % (Auto) 0.3 (0.1-1.2) % Neut # (Auto) 9.19 H (1.56-6.13) K/mm3 Lymph # (Auto) 1.90 (1.18-3.74) K/mm3 [place] # (Auto) 1.01 H (0.24-0.36) K/mm3 Eos # (Auto) 0.17 (0.04-0.36) K/mm3 Baso # (Auto) 0.04 (0.01-0.08) K/mm3 Manual Slide Review Normal smear D-Dimer, Quantitative 8.14 H (0.19-0.50) mg/L Sodium 139 (136-145) mEq/L Potassium 4.2 (3.5-5.1) mEq/L Chloride 100 (98-107) mEq/L Carbon Dioxide 29 (21-32) mEq/L Anion Gap 14.2 (5-15) BUN 11 (7-18) mg/dL Creatinine 0.6 (0.55-1.02) mg/dL Est Cr Clr Drug Dosing 89.70 mL/min Estimated GFR (MDRD) > 60 (>60) mL/min BUN/Creatinine Ratio 18.3 H (14-18) Glucose 100 (74-106) mg/dL Calcium 9.2 (8.5-10.1) mg/dL Total Bilirubin 0.3 (0.2-1.0) mg/dL AST 31 (15-37) U/L ALT 34 (14-59) U/L Alkaline Phosphatase 199 H (46-116) U/L CK-MB (CK-2) 1.4 (0-3.6) ng/ml Troponin I < 0.017 (0.00-0.056) ng/mL C-Reactive Protein (<1.0) mg/dL Total Protein 7.8 (6.4-8.2) g/dl Albumin 3.4 (3.4-5.0) g/dl Globulin 4.4 gm/dL Albumin/Globulin Ratio 0.8 L (1-2) 12/20/19 Range/Units 17:57 WBC (3.98-10.04) K/mm3 RBC (3.98-5.22) M/mm3 Hgb (11.2-15.7) gm/dl Hct (34.1-44.9) % MCV (79.4-94.8) fl MCH (25.6-32.2) pg MCHC (32.2-35.5) g/dl RDW Std Deviation (36.4-46.3) fL Plt Count (182-369) K/mm3 MPV (9.4-12.3) fl Neut % (Auto) (34.0-71.1) % Lymph % (Auto) (19.3-51.7) % [place] % (Auto) (4.7-12.5) % Eos % (Auto) (0.7-5.8) Baso % (Auto) (0.1-1.2) % Neut # (Auto) (1.56-6.13) K/mm3 Lymph # (Auto) (1.18-3.74) K/mm3 [place] # (Auto) (0.24-0.36) K/mm3 Eos # (Auto) (0.04-0.36) K/mm3 Baso # (Auto) (0.01-0.08) K/mm3 Manual Slide Review D-Dimer, Quantitative (0.19-0.50) mg/L Sodium (136-145) mEq/L Potassium (3.5-5.1) mEq/L Chloride (98-107) mEq/L Carbon Dioxide (21-32) mEq/L Anion Gap (5-15) BUN (7-18) mg/dL Creatinine (0.55-1.02) mg/dL Est Cr Clr Drug Dosing mL/min Estimated GFR (MDRD) (>60) mL/min BUN/Creatinine Ratio (14-18) Glucose (74-106) mg/dL Calcium (8.5-10.1) mg/dL Total Bilirubin (0.2-1.0) mg/dL AST (15-37) U/L ALT (14-59) U/L Alkaline Phosphatase (46-116) U/L CK-MB (CK-2) (0-3.6) ng/ml Troponin I (0.00-0.056) ng/mL C-Reactive Protein 7.1 H* (<1.0) mg/dL Total Protein (6.4-8.2) g/dl Albumin (3.4-5.0) g/dl Globulin gm/dL Albumin/Globulin Ratio (1-2) Meds: Medications Discontinued Medications Generic Name Dose Route Start Last Admin Trade Name Freq PRN Reason Stop Dose Admin Hydromorphone HCl 0.5 mg 12/20/19 18:27 12/20/19 18:38 Dilaudid IVPUSH 12/20/19 18:28 0.5 mg ONETIME ONE Administration Hydromorphone HCl 0.5 mg 12/20/19 21:03 12/20/19 21:16 Dilaudid IVPUSH 12/20/19 21:04 0.5 mg ONETIME ONE Administration Sodium Chloride 100 mls @ 60 mls/hr 12/20/19 19:30 12/20/19 20:31 Normal Saline IV 60 mls/hr ASDIRECTED ONOFRE Administration Iopamidol 100 ml 12/20/19 19:30 12/20/19 20:31 Isovue-370 (76%) IVPUSH 12/20/19 19:31 100 ml ONETIME ONE Administration Ketorolac Tromethamine 30 mg 12/20/19 18:26 12/20/19 18:37 Toradol IVPUSH 12/20/19 18:27 30 mg ONETIME ONE Administration Ondansetron HCl 4 mg 12/20/19 18:30 12/20/19 18:36 Zofran IVPUSH 12/20/19 18:31 4 mg ONETIME ONE Administration Oxycodone/Acetaminophen 2 tab 12/20/19 21:03 12/20/19 21:16 Percocet 325-5 Mg PO 12/20/19 21:04 2 tab ONETIME ONE Administration Sodium Chloride 10 ml 12/20/19 18:19 12/20/19 18:35 Saline Flush FLUSH 10 ml ASDIRECTED PRN Administration Keep Vein Open Sodium Chloride 10 ml 12/20/19 19:30 12/20/19 20:31 Saline Flush FLUSH 10 ml ONETIME PRN Administration Keep Vein Open - Re-Assessments/Exams Free Text/Narrative Re-Assessment/Exam: Patient is a 54-year-old female presenting with intense left-sided chest pain each time she takes a deep breath. Upon holding her breath, the pain does resolve. She was seen in this emergency department 11 days ago with similar symptoms but states that this feels more intense than the last time. At that time she was diagnosed with pneumonia and pleurisy. On review of her chest x- ray from that time, radiologist did not read out an infiltrate. She completed a course of azithromycin and diclofenac a few days ago. She states symptoms had improved with these medications, however today they returned. She was tested for coronavirus 10 days ago and states that she has not really left the house since that time so she does not think that she could have COVID. She has not taken anything for pain at home thus far. My suspicion is that this is pleuritic chest pain as she denies that the pain is present when she is not breathing. She does appear to be in some significant discomfort, therefore we will give her Dilaudid 0.5 mg IV as well as Toradol 30 mg IV. Also ordered a CBC, CMP, CRP, troponin, d-dimer, chest x-ray, and an EKG of her heart. 12/20/191914 Hematology was significant for WBC elevated at 12.35, hemoglobin 11.0, platelets 391, d-dimer 8.14, CRP 7.1. Troponin was negative. EKG showed no acute abnormalities. Chest x-ray was normal. Patient is feeling better after the Toradol and Dilaudid. Per discussion with her, she states she did have some pain in her right inner thigh a number of weeks back but that has resolved. She denies any pain or swelling to her bilateral lower extremities. To the elevation of 8 point one quarter d-dimer, I have ordered a ultrasound of her bilateral lower extremities as well as a CT angiogram of her chest. 12/20/192129 Ultrasound of the bilateral lower extremities were negative for DVT. CT angiogram of the chest showed no findings of pulmonary embolism. I did however show a small pericardial effusion as well as a small left-sided pleural effusion. She also has a small left basilar atelectasis. This effusion is not significant enough to warrant a thoracentesis. Patient has maintain oxygen saturations of 93 to 98% on room air throughout her stay in the ER. In light of the patient's elevated d-dimer without findings of blood clots as well as the pleural effusion, there is some concern for an underlying metastatic disease. Patient is a 10-year half pack a day smoker. Discussed with her that it is essential that she follow-up with her primary care provider or if she is not available, whichever practitioner is available, for an extensive work-up to rule out malignancy. We will discharge her home with a prescription for Percocet for pain, as well as a 7-day course of diclofenac. Recommend that she call her primary care provider tomorrow morning to set up a follow-up visit. Discussed return precautions with her as well. Return to the ER for any new or worsening symptoms. Departure - Departure Time of Disposition: 21:38 Disposition: Home, Self-Care 01 Condition: Good Clinical Impression: Pleural effusion, Pleurisy, Elevated d-dimer - Discharge Information *PRESCRIPTION DRUG MONITORING PROGRAM REVIEWED*: Yes *COPY OF PRESCRIPTION DRUG MONITORING REPORT IN PATIENT MERI: No Prescriptions: Acetaminophen/oxyCODONE [Percocet 325-5 MG] 1 - 2 each PO Q6H PRN #15 tab PRN Reason: Pain Diclofenac Sodium [Voltaren] 75 mg PO BIDMEALS #14 tab.cr Instructions: Pleurisy, Pleural Effusion Referrals: Dorothea Ivory PA-C [Primary Care Provider] - Forms: ED Department Discharge Additional Instructions: You were seen in the emergency department today for left-sided chest pain each time you breathed. Your work-up included blood work, an EKG of your heart, a chest x-ray, venous Doppler ultrasounds of both of your legs, as well as a CT angiogram of your chest. Results of your work-up were negative for cardiac involvement indicated by normal troponin levels and no abnormalities on your EKG which would indicate cardiac ischemia. Results of your blood work did show a significantly elevated d-dimer which can be an indicator of blood clots, however your ultrasound of your lower legs as well as your CT angiogram of your chest was negative for blood clots. The CT scan of your chest did however show a small pleural effusion in the left lung which is likely the cause of your pleurisy and pain. As we discussed, the results of today's work-up do warrant close follow-up as it is concerning for possible metastatic disease. Coronavirus is also in the differential. You have been tested for coronavirus today and will be notified when these results are available. Prescriptions for Percocet as well as diclofenac have been sent to [facility]. Take these medications as prescribed. Recommend that you call tomorrow morning and set up an appointment in the clinic with the next available provider, preferably Dorothea Ivory, but if she is not available you may see anyone. Return to the ER for any new or worsening symptoms of concern. Sepsis Event Note (ED) - Evaluation Sepsis Screening Result: No Definite Risk - Focused Exam Vital Signs: Vital Signs Temp Pulse Resp BP Pulse Ox 12/20/19 17:33 97.5 F 105 H 24 H 149/91 H 96 - My Orders Last 24 Hours: My Active Orders 12/20/19 21:59 CORONAVIRUS COVID-19 PCR PHL Routine - Assessment/Plan Last 24 Hours: My Active Orders 12/20/19 21:59 CORONAVIRUS COVID-19 PCR PHL Routine
--- NOTE | 2019-12-20 19:11 | CR ---
Chest: Portable view of the chest was obtained. Comparison: Prior chest x-ray of 12/09/19. Heart size slightly enlarged but accentuated by portable technique. Lungs are clear with no acute parenchymal change. Bony structures are grossly intact. Impression: 1. Heart size slightly enlarged but accentuated by portable technique. 2. Nothing acute is otherwise seen. Diagnostic code #2 This report was dictated in [facility]
[2019-12-20] MEDS ORDERED: Iopamidol 755 Mg/ML 100 ML Bottle IVPUSH ONE (19:30)
[2019-12-20] MEDS ORDERED: Sodium Chloride 0.9% 100 ML IV SCH (19:30)
--- NOTE | 2019-12-20 20:21 | US ---
Bilateral lower extremity deep venous ultrasound: Duplex and color Doppler evaluation was obtained of the right and left common femoral, superficial femoral, proximal greater saphenous, popliteal, posterior tibial and peroneal veins. Comparison: Previous venous study of 11/08/19. Findings: Slow flow is noted within both popliteal veins most likely representing an element of venous insufficiency. Normal phasic flow, augmentation and compression is otherwise seen. Impression: 1. No evidence of deep venous thrombosis within the right or left lower extremities. 2. Other findings as noted above. Diagnostic code #2 This report was dictated in [facility]
--- NOTE | 2019-12-20 20:58 | CT ---
CT chest Technique: Multiple axial sections through the chest were obtained. Intravenous contrast was utilized. Study performed as a pulmonary angiogram protocol. Findings: Pulmonary arteries are moderately well opacified. No filling defects are seen to indicate pulmonary embolism. Aorta shows no aneurysm. Mild atherosclerotic calcification within thoracic aorta is seen. Fairly prominent coronary artery calcification is seen. Small pericardial effusion is seen. Small left-sided pleural effusion is noted. Visualized upper abdominal structures shows no discrete abnormality. Heart is mildly enlarged. Small mediastinal lymph nodes are seen believed to be within normal limits. No axillary adenopathy is appreciated. Minimal left basilar atelectasis is seen. No acute parenchymal change is otherwise seen within the chest. Bone window settings were reviewed. Mild scattered degenerative change is seen throughout the thoracic spine. No acute osseous finding is seen. Impression: 1. No findings of pulmonary embolism. 2. Cardiomegaly with small pericardial effusion and small left-sided pleural effusion. 3. Mild left basilar atelectasis. 4. Nothing acute is otherwise appreciated on CT study of the chest. Diagnostic code #3 This report was dictated in [facility]
[2019-12-20] MEDS ORDERED: Acetaminophen/oxyCODONE 325-5 MG Tab PO ONE (21:03)
== END 2019-12-20 22:00 | disposition home or self-care (01) ==
LOC: JD.ED 17:20
DX: J90 Pleural effusion, not elsewhere classified (principal); R79.1 Abnormal coagulation profile; I10 Essential (primary) hypertension; K21.9 Gastro-esophageal reflux disease without esophagitis; F41.9 Anxiety disorder, unspecified; F32.9 Major depressive disorder, single episode, unspecified; E11.9 Type 2 diabetes mellitus without complications; F17.210 Nicotine dependence, cigarettes, uncomplicated; R00.0 Tachycardia, unspecified; Z88.8 Allergy status to other drugs, medicaments and biological substances; Z79.4 Long term (current) use of insulin; Z79.899 Other long term (current) drug therapy; Z20.828 Contact with and (suspected) exposure to other viral communicable diseases
CPT/HCPCS: 36415; 71045; 71275; 80053; 82553; 84484; 85025; 85379; 86140; 87635; 93005; 93970; 96361; 96374; 96375; 96376; 99284; A9270; J1170; J1885; J2405; J7050; Q9967; 93010; U0002

== ENCOUNTER 2020-03-08 13:24 | Emergency (ER) | payer BC ==
[2020-03-08 13:58] VITALS: BP 132/96; PULSE 112
[2020-03-08] MEDS ORDERED: Ondansetron 4 MG/2 ML SDV IVPUSH ONE (14:25)
[2020-03-08] MEDS ORDERED: Sodium Chloride 0.9% 1,000 ML IV ONE ×2 (14:25→18:26)
--- NOTE | 2020-03-08 14:35 | EDM.PDOC ---
<Naila Lloyd - Last Filed: 03/08/20 14:27> ED HPI GENERAL MEDICAL PROBLEM - General Chief Complaint: Cardiovascular Problem Stated Complaint: WEAK/DIZZY/BP LOW/VOMITTING Time Seen by Provider: 03/08/20 14:15 Source of Information: Reports: Patient History Limitations: Reports: No Limitations - History of Present Illness INITIAL COMMENTS - FREE TEXT/NARRATIVE: 54-year-old female presents to the ER with complaints of abdominal pain and diarrhea. She states that earlier this year she was treated for 3 separate episodes of having a urinary tract infection and H. pylori all for which she had been placed on antibiotics. As result of this she did develop C. difficile in November was placed on vancomycin 125 mg but did not know the exact length of treatment for that. She was then sent to Dr. Johnson, a GI specialist to have a colonoscopy and endoscopy however she did test positive for C. difficile once again so he treated her on a second course of vancomycin 250 mg this time but she is unsure of the length. She completed this course 3 weeks ago however is still having watery stools and nausea and vomiting whenever she eats or drinks. She is an insulin-dependent diabetic and does have a close monitor. She states she is to take Toujeo 20 units every morning however for the last 2 days her blood sugars have only read in the 130s so she has not taken her insulin. She attempted to get into see her primary care provider Dorothea Ivory today however she was told to come to the emergency department as she felt dizzy this morning when getting up and walking around and states she checked her blood pressures and they were 70s systolic. In the emergency department she is orthostatic initial blood pressure laying down 123/83 heart rate 112, sitting blood pressure 107/82 heart rate 119, and standing blood pressure 68/36 heart rate 130. Pt is complaining of left upper quadrant abd pain which she states feels the same as when she had h. pylori. - Related Data Allergies Allergy/AdvReac Type Severity Reaction Status Date / Time metformin Allergy Diarrhea Verified 03/08/20 13:43 Home Meds: Home Meds Insulin Glargine,Hum.Rec.Anlog [Toujeo Solostar] 20 unit SQ ACBREAKFAST 11/08/19 [History] Losartan/Hydrochlorothiazide [Losartan-HCTZ 100-12.5 MG] 12.5 - 100 mg PO DAILY 11/08/19 [History] Multivit-Min/Iron/Folic/Lutein [Centrum Silver Women Tablet] 1 tab PO DAILY 11/08/19 [History] Omeprazole 20 mg PO DAILY 11/08/19 [History] Sertraline HCl 100 mg PO DAILY 11/08/19 [History] Ondansetron [Zofran ODT] 4 mg PO Q6H PRN #20 tab.dis 03/08/20 [Rx] Vancomycin [Vancomycin Cap] 250 mg PO TID #30 cap 03/08/20 [Rx] metroNIDAZOLE [Flagyl] 500 mg PO TID #30 tab 03/08/20 [Rx] traMADol [Ultram] 50 mg PO ASDIRECTED PRN 03/08/20 [History] Past Medical History HEENT History: Reports: Impaired Vision Other HEENT History: wears eyeglasses. Cardiovascular History: Reports: Hypertension Respiratory History: Reports: Bronchitis, Recurrent Gastrointestinal History: Reports: GERD, Helicobacter Pylori, Other (See Below) (c diff) Genitourinary History: Reports: Pyelonephritis, UTI, Recurrent EIGHT SECTION BLOWER History: Reports: Musculoskeletal History: Reports: Fracture Neurological History: Reports: None Psychiatric History: Reports: Anxiety, Depression Endocrine/Metabolic History: Reports: Diabetes, Type II, Vitamin D Deficiency Hematologic History: Reports: Anemia, Other (See Below) Other Hematologic History: elevated d dimer Immunologic History: Reports: None Oncologic (Cancer) History: Reports: None Dermatologic History: Reports: None - Infectious Disease History Infectious Disease History: Reports: C-Difficile, Chicken Pox, Helicobacter Pylori, Measles - Past Surgical History Head Surgeries/Procedures: Reports: None Musculoskeletal Surgical History: Reports: ORIF, Other (See Below) Other Musculoskeletal Surgeries/Procedures:: L) ankle Social & Family History - Family History Cardiac: Reports: CAD Respiratory: Reports: None GI: Reports: None : Reports: None OBGYN: Reports: None Neurological: Reports: None Psychiatric: Reports: None Endocrine/Metabolic: Reports: None Hematologic: Reports: None Immunologic: Reports: None Dermatologic: Reports: None Oncologic: Reports: None - Tobacco Use Tobacco Use Status *Q: Current Every Day Tobacco User Years of Tobacco use: 10 Packs/Tins Daily: 0.5 - Caffeine Use Caffeine Use: Reports: Coffee, Soda - Recreational Drug Use Recreational Drug Use: No - Living Situation & Occupation Living situation: Reports: Occupation: Unemployed ED ROS GENERAL - Review of Systems Review Of Systems: See Below Constitutional: Reports: No Symptoms HEENT: Reports: No Symptoms Respiratory: Reports: No Symptoms Cardiovascular: Reports: Blood Pressure Problem (hypotension), Lightheadedness, Palpitations Endocrine: Reports: No Symptoms GI/Abdominal: Reports: Abdominal Pain, Diarrhea, Nausea, Vomiting : Reports: Dysuria, Frequency Musculoskeletal: Reports: No Symptoms Skin: Reports: No Symptoms Neurological: Reports: No Symptoms Psychiatric: Reports: No Symptoms Hematologic/Lymphatic: Reports: No Symptoms Immunologic: Reports: No Symptoms ED EXAM, GENERAL - Physical Exam Exam: See Below Exam Limited By: No Limitations General Appearance: Alert, WD/WN, No Apparent Distress Eye Exam: Bilateral Eye: EOMI, PERRL Ears: Normal External Exam Head: Atraumatic, Normocephalic Neck: Normal Inspection, Supple, Non-Tender, Full Range of Motion Respiratory/Chest: No Respiratory Distress, Lungs Clear, Normal Breath Sounds, No Accessory Muscle Use, Chest Non-Tender Cardiovascular: Normal Peripheral Pulses, Regular Rate, Rhythm, No Edema, No Murmur, Tachycardia Peripheral Pulses: 2+: Radial (L), Radial (R) GI/Abdominal: Normal Bowel Sounds, Soft, No Distention, Tender (Female) Exam: Deferred Rectal (Female) Exam: Deferred Back Exam: Normal Inspection, Full Range of Motion Extremities: Normal Inspection, Normal Range of Motion, Non-Tender, No Pedal Edema, Normal Capillary Refill Neurological: Alert, Oriented, Normal Cognition, No Motor/Sensory Deficits Psychiatric: Normal Affect, Normal Mood Skin Exam: Warm, Dry, Intact Departure - Departure Disposition: Home, Self-Care 01 Clinical Impression: Orthostatic hypotension, C. difficile diarrhea, H. pylori infection, Dehydration Prescriptions: metroNIDAZOLE [Flagyl] 500 mg PO TID #30 tab Vancomycin [Vancomycin Cap] 250 mg PO TID #30 cap Ondansetron [Zofran ODT] 4 mg PO Q6H PRN #20 tab.dis PRN Reason: Nausea\vomiting Referrals: Dorothea Ivory PA-C [Primary Care Provider] - 1 Week Ollie Johnson MD [Ordering Only Provider] - 1 Day Forms: ED Department Discharge Additional Instructions: Take the vancomycin and flagyl 3 times per day. Take the zofran every 6 hours as needed for nausea and vomiting. Drink plenty of fluids like water, gatorade, or powerade. Call Dr Johnson's office tomorrow. Please return if you are worse. Sepsis Event Note (ED) - Evaluation Sepsis Screening Result: No Definite Risk <Francisco James - Last Filed: 03/08/20 18:41> Course - Vital Signs Last Recorded V/S: Last Vital Signs Temp 97.6 F 03/08/20 13:56 Pulse 112 H 03/08/20 13:56 Resp 20 03/08/20 13:56 BP 132/96 H 03/08/20 13:56 Pulse Ox 100 03/08/20 13:56 Orthostatic Blood Pressure [ 68/36 Standing] Orthostatic Blood Pressure [ 107/82 Sitting] Orthostatic Blood Pressure [ 123/83 Supine] - Orders/Labs/Meds Orders: Active Orders 24 hr Category Date Time Status C DIFFICILE TOXIN IMMUNOASSAY [MREF] Stat Lab 03/08/20 14:14 Received CULTURE URINE [RM] Stat Lab 03/08/20 14:23 Received Sodium Chloride 0.9% [Normal Saline] 1,000 ml Med 03/08/20 18:26 Active IV ONETIME Sodium Chloride 0.9% [Saline Flush] Med 03/08/20 16:16 Active 10 ml FLUSH ONETIME PRN Medication Orders Sodium Chloride (Normal Saline) 1,000 mls @ 1,000 mls/hr IV ONETIME ONE Stop: 03/08/20 19:25 Last Admin: 03/08/20 18:30 Dose: 1,000 mls/hr Documented by: MEHDI Sodium Chloride (Saline Flush) 10 ml FLUSH ONETIME PRN PRN Reason: Keep Vein Open Last Admin: 03/08/20 16:40 Dose: 10 ml Documented by: NGUYEN Labs: Laboratory Tests 03/08/20 03/08/20 03/08/20 Range/Units 13:48 13:48 13:52 WBC 10.87 H (3.98-10.04) K/mm3 RBC 4.94 (3.98-5.22) M/mm3 Hgb 15.2 D (11.2-15.7) gm/dl Hct 44.6 (34.1-44.9) % MCV 90.3 D (79.4-94.8) fl MCH 30.8 (25.6-32.2) pg MCHC 34.1 (32.2-35.5) g/dl RDW Std Deviation 44.0 (36.4-46.3) fL Plt Count 167 L D (182-369) K/mm3 MPV 11.5 (9.4-12.3) fl Neut % (Auto) 69.6 (34.0-71.1) % Lymph % (Auto) 18.0 L (19.3-51.7) % [place] % (Auto) 11.0 (4.7-12.5) % Eos % (Auto) 1.1 (0.7-5.8) Baso % (Auto) 0.2 (0.1-1.2) % Neut # (Auto) 7.56 H (1.56-6.13) K/mm3 Lymph # (Auto) 1.96 (1.18-3.74) K/mm3 [place] # (Auto) 1.20 H (0.24-0.36) K/mm3 Eos # (Auto) 0.12 (0.04-0.36) K/mm3 Baso # (Auto) 0.02 (0.01-0.08) K/mm3 Manual Slide Review Normal smear Sodium 130 L (136-145) mEq/L Potassium 3.3 L (3.5-5.1) mEq/L Chloride 94 L (98-107) mEq/L Carbon Dioxide 29 (21-32) mEq/L Anion Gap 10.3 (5-15) BUN 26 H (7-18) mg/dL Creatinine 1.0 (0.55-1.02) mg/dL Est Cr Clr Drug Dosing 58.54 mL/min Estimated GFR (MDRD) 58 (>60) mL/min BUN/Creatinine Ratio 26.0 H (14-18) Glucose 143 H (74-106) mg/dL POC Glucose 141 H (70-105) mg/dL Calcium 9.5 (8.5-10.1) mg/dL Magnesium 2.0 (1.8-2.4) mg/dl Total Bilirubin 1.6 H (0.2-1.0) mg/dL AST 77 H (15-37) U/L ALT 198 H (14-59) U/L Alkaline Phosphatase 159 H (46-116) U/L C-Reactive Protein 2.4 H* (<1.0) mg/dL Total Protein 7.9 (6.4-8.2) g/dl Albumin 3.9 (3.4-5.0) g/dl Globulin 4.0 gm/dL Albumin/Globulin Ratio 1.0 (1-2) Urine Color (Yellow) Urine Appearance (Clear) Urine pH (5.0-8.0) Ur Specific [place] (1.005-1.030) Urine Protein (Negative) Urine Glucose (UA) (Negative) Urine Ketones (Negative) Urine Occult Blood (Negative) Urine Nitrite (Negative) Urine Bilirubin (Negative) Urine Urobilinogen (0.2-1.0) Ur Leukocyte Esterase (Negative) U Hyaline Cast (Auto) (0-5) /lpf Urine RBC (0-5) /hpf Urine WBC (0-5) /hpf Ur Squamous Epith Cells (0-5) /hpf Urine Bacteria (FEW) /hpf Urine Mucus (FEW) /hpf C.difficile 027-[id number] C. difficile Tox (PCR) SARS-CoV-2 RNA (LOUISA) (NEGATIVE) 03/08/20 03/08/20 03/08/20 Range/Units 14:14 14:23 16:15 WBC (3.98-10.04) K/mm3 RBC (3.98-5.22) M/mm3 Hgb (11.2-15.7) gm/dl Hct (34.1-44.9) % MCV (79.4-94.8) fl MCH (25.6-32.2) pg MCHC (32.2-35.5) g/dl RDW Std Deviation (36.4-46.3) fL Plt Count (182-369) K/mm3 MPV (9.4-12.3) fl Neut % (Auto) (34.0-71.1) % Lymph % (Auto) (19.3-51.7) % [place] % (Auto) (4.7-12.5) % Eos % (Auto) (0.7-5.8) Baso % (Auto) (0.1-1.2) % Neut # (Auto) (1.56-6.13) K/mm3 Lymph # (Auto) (1.18-3.74) K/mm3 [place] # (Auto) (0.24-0.36) K/mm3 Eos # (Auto) (0.04-0.36) K/mm3 Baso # (Auto) (0.01-0.08) K/mm3 Manual Slide Review Sodium (136-145) mEq/L Potassium (3.5-5.1) mEq/L Chloride (98-107) mEq/L Carbon Dioxide (21-32) mEq/L Anion Gap (5-15) BUN (7-18) mg/dL Creatinine (0.55-1.02) mg/dL Est Cr Clr Drug Dosing mL/min Estimated GFR (MDRD) (>60) mL/min BUN/Creatinine Ratio (14-18) Glucose (74-106) mg/dL POC Glucose (70-105) mg/dL Calcium (8.5-10.1) mg/dL Magnesium (1.8-2.4) mg/dl Total Bilirubin (0.2-1.0) mg/dL AST (15-37) U/L ALT (14-59) U/L Alkaline Phosphatase (46-116) U/L C-Reactive Protein (<1.0) mg/dL Total Protein (6.4-8.2) g/dl Albumin (3.4-5.0) g/dl Globulin gm/dL Albumin/Globulin Ratio (1-2) Urine Color Yellow (Yellow) Urine Appearance Cloudy H (Clear) Urine pH 6.0 (5.0-8.0) Ur Specific [place] 1.025 (1.005-1.030) Urine Protein 2+ H (Negative) Urine Glucose (UA) Negative (Negative) Urine Ketones Trace H (Negative) Urine Occult Blood Trace-lysed H (Negative) Urine Nitrite Negative (Negative) Urine Bilirubin 2+ H (Negative) Urine Urobilinogen 1.0 (0.2-1.0) Ur Leukocyte Esterase 3+ H (Negative) U Hyaline Cast (Auto) >100 H (0-5) /lpf Urine RBC 0-5 (0-5) /hpf Urine WBC 50-75 H (0-5) /hpf Ur Squamous Epith Cells 5-10 H (0-5) /hpf Urine Bacteria Many H (FEW) /hpf Urine Mucus Few (FEW) /hpf C.difficile 027-NAP1-B1 Presumptive negative C. difficile Tox (PCR) Positive H SARS-CoV-2 RNA (LOUISA) Negative (NEGATIVE) Meds: Medications Generic Name Dose Route Start Last Admin Trade Name Anita PRN Reason Stop Dose Admin Sodium Chloride 1,000 mls @ 1,000 mls/hr 03/08/20 18:26 03/08/20 18:30 Normal Saline IV 03/08/20 19:25 1,000 mls/hr ONETIME ONE Administration Sodium Chloride 10 ml 03/08/20 16:16 03/08/20 16:40 Saline Flush FLUSH 10 ml ONETIME PRN Administration Keep Vein Open Discontinued Medications Generic Name Dose Route Start Last Admin Trade Name Freq PRN Reason Stop Dose Admin Sodium Chloride 1,000 mls @ 999 mls/hr 03/08/20 14:25 03/08/20 14:43 Normal Saline IV 03/08/20 15:25 999 mls/hr ONETIME ONE Administration Sodium Chloride Confirm 03/08/20 18:27 03/08/20 18:30 Normal Saline Administered 03/08/20 18:28 Not Given Dose 1,000 mls @ as directed .ROUTE .STK-MED ONE Iopamidol 100 ml 03/08/20 16:16 03/08/20 16:40 Isovue-300 (61%) IVPUSH 03/08/20 16:17 100 ml ONETIME ONE Administration Ondansetron HCl 4 mg 03/08/20 14:25 03/08/20 14:43 Zofran IVPUSH 03/08/20 14:26 4 mg ONETIME ONE Administration - Re-Assessments/Exams Free Text/Narrative Re-Assessment/Exam: 03/08/20 18:33 Taking over for Naila. I ordered a CT and COVID 19. Her WBC was elevated at 10.87. Her Na was low at 130. Her K was low at 3.3. Her glucose is elevated at 143. Her total bili is elevated at 1.6. Her AST is elevated at 77. Her ALT is elevated at 198. Her alk phos is elevated at 159. Her CRP is elevated at 2.4. Her UA shows a possible UTI. I have sent it for culture. Her C-dif toxin is positive. Her H-pylori is positive. Her CT shows nothing acute. I called Dr Johnson and he wanted her back on vancomycin 250mg TID and flagyl 500mg TID. He wants her to contact the clinic tomorrow and they will schedule a colonoscopy. The patient did get up and her BP dropped again. I will give her another liter of fluid before she leaves. Departure - Departure Time of Disposition: 18:40 Condition: Good Sepsis Event Note (ED) - Focused Exam Vital Signs: Vital Signs Temp Pulse Resp BP Pulse Ox 03/08/20 13:56 97.6 F 112 H 20 132/96 H 100 - My Orders Last 24 Hours: My Active Orders 03/08/20 18:26 Sodium Chloride 0.9% [Normal Saline] 1,000 ml IV ONETIME - Assessment/Plan Last 24 Hours: My Active Orders 03/08/20 18:26 Sodium Chloride 0.9% [Normal Saline] 1,000 ml IV ONETIME
[2020-03-08] MEDS ORDERED: Sodium Chloride 0.9% 10 ML Syringe FLUSH PRN (16:16)
[2020-03-08] MEDS ORDERED: Iopamidol 612 MG/ML 100 ML Bottle IVPUSH ONE (16:16)
--- NOTE | 2020-03-08 16:21 | CR ---
Abdomen: Supine and upright views of the abdomen were obtained. Comparison: Prior CT abdomen and pelvis study of 12/23/19. Findings: Bowel gas: Bowel gas pattern is normal. Calcifications are seen within the pelvis which most likely represent phleboliths and slight arterial calcification. Free air: No free air is seen. Lung bases: Visualized lung bases shows minimal atelectasis. Bony structures: No acute abnormality is appreciated. Impression: 1. Findings as noted above. Nothing acute is seen. Diagnostic code #2
--- NOTE | 2020-03-08 17:07 | CT ---
CT abdomen and pelvis Technique: Multiple axial sections were obtained from above the dome of the diaphragm inferiorly through the pubic symphysis. Intravenous contrast was utilized. No oral contrast has been given. Comparison: Previous CT abdomen and pelvis study of 07/23/19. Findings: Visualized lung bases: Within normal limits Liver: No focal abnormality is seen. Gallbladder contains no calcified gallstones. Spleen: Spleen appears within normal limits. Bowel: Small hiatal hernia is noted. No additional bowel abnormality is seen. Appendix is felt to be visualized and is normal. Adrenal glands: No nodule is seen. Kidneys: Symmetric contrast enhancement without hydronephrosis or mass. Abdominal aorta, retroperitoneum and mesentery: Mild atherosclerotic calcification is seen within the abdominal aorta. No aneurysm is seen. No retroperitoneal adenopathy is seen. No mesenteric abnormalities are appreciated. Pelvis: No pelvic mass or adenopathy is seen. Delayed images were obtained. Contrast excretion is seen within the right ureter. Minimal contrast is seen within the bladder. Osseous: Mild degenerative change is seen within the thoracic spine. No acute osseous finding is appreciated. Impression: 1. Nothing acute is identified on CT study of the abdomen and pelvis. 2. Findings believed to be incidental as described above. Diagnostic code #1
[2020-03-08] MEDS ORDERED: Sodium Chloride 0.9% 1,000 ML ONE (18:27)
== END 2020-03-08 19:42 | disposition home or self-care (01) ==
LOC: JD.ED 13:24
DX: A04.72 Enterocolitis due to Clostridium difficile, not specified as recurrent (principal); A04.8 Other specified bacterial intestinal infections; I95.1 Orthostatic hypotension; E86.0 Dehydration; I10 Essential (primary) hypertension; K21.9 Gastro-esophageal reflux disease without esophagitis; F41.9 Anxiety disorder, unspecified; F32.9 Major depressive disorder, single episode, unspecified; E11.9 Type 2 diabetes mellitus without complications; F17.210 Nicotine dependence, cigarettes, uncomplicated; Z79.4 Long term (current) use of insulin; Z79.899 Other long term (current) drug therapy; Z88.8 Allergy status to other drugs, medicaments and biological substances; Z20.828 Contact with and (suspected) exposure to other viral communicable diseases
CPT/HCPCS: 36415; 74019; 74177; 80053; 81001; 82962; 83735; 85025; 86140; 87086; 87088; 87186; 87324; 87338; 87493; 87635; 96374; 99284; J2405; J7030; Q9967; U0002

== ENCOUNTER 2020-09-17 08:31 | Emergency (ER) | payer BC ==
[2020-09-17 09:00] VITALS: PULSE 89
--- NOTE | 2020-09-17 09:52 | EDM.PDOCBH ---
<Francisco James - Last Filed: 09/17/20 18:42> ED HPI GENERAL MEDICAL PROBLEM - General Chief Complaint: Behavioral/Psych Stated Complaint: SUICIDAL IDEATIONS Time Seen by Provider: 09/17/20 08:43 Source of Information: Reports: Patient, Family, Police History Limitations: Reports: Intoxication - History of Present Illness INITIAL COMMENTS - FREE TEXT/NARRATIVE: The patient presents by [place] [employer] for suicidal ideation. The patient was found by a walker out by the [place] [facility]. She was sleeping in her vehicle. Police came to talk to her. She was intoxicated. She had a loaded pistol with her. She told the officer she was planing on shooting herself. He brought her in for help. Her came to the ER shortly after she arrived. The patient has been dealing with abdominal pain and diarrhea for about 17 months. She has been treated for C-dif multiple times. She is not currently being treated for it. She has had multiple labs, CT scans, stool samples and GI referral. She has 15 to 20 bowel movements per day and some times has accidents. She is currently trying to get into the [facility] but that has been a challenge. She is tired of living this way and wanted to shoot herself in the head. She does admit to drinking last night. She will some times drink wine but not daily or heavily. She has no fever, chills, cough, chest pain or shortness of breath. Onset: Gradual Duration: Day(s): Improves with: Reports: None Worsens with: Reports: None Associated Symptoms: Reports: No Other Symptoms - Related Data Allergies Allergy/AdvReac Type Severity Reaction Status Date / Time metformin Allergy Diarrhea Verified 09/17/20 09:00 Home Meds: Home Meds Insulin Glargine,Hum.Rec.Anlog [Yessica Jordan] 30 unit SQ ACBREAKFAST 11/08/19 [History] Multivit-Min/Iron/Folic/Lutein [Centrum Silver Women Tablet] 1 tab PO DAILY 11/08/19 [History] Omeprazole 20 mg PO DAILY 11/08/19 [History] Sertraline HCl 150 mg PO DAILY 11/08/19 [History] traMADol [Ultram] 50 mg PO ASDIRECTED PRN 03/08/20 [History] Losartan [Cozaar] 25 mg PO DAILY 09/17/20 [History] Past Medical History HEENT History: Reports: Impaired Vision Other HEENT History: wears eyeglasses. Cardiovascular History: Reports: Hypertension Respiratory History: Reports: Bronchitis, Recurrent Gastrointestinal History: Reports: GERD, Helicobacter Pylori, Other (See Below) Genitourinary History: Reports: Pyelonephritis, UTI, Recurrent CAGE MANAGER History: Reports: Musculoskeletal History: Reports: Fracture Neurological History: Reports: None Psychiatric History: Reports: Anxiety, Depression Endocrine/Metabolic History: Reports: Diabetes, Type II, Vitamin D Deficiency Hematologic History: Reports: Anemia, Other (See Below) Other Hematologic History: elevated d dimer Immunologic History: Reports: None Oncologic (Cancer) History: Reports: None Dermatologic History: Reports: None - Infectious Disease History Infectious Disease History: Reports: C-Difficile, Chicken Pox, Helicobacter Pylori, Measles - Past Surgical History Head Surgeries/Procedures: Reports: None Musculoskeletal Surgical History: Reports: ORIF, Other (See Below) Other Musculoskeletal Surgeries/Procedures:: L) ankle Social & Family History - Family History Cardiac: Reports: CAD Respiratory: Reports: None GI: Reports: None : Reports: None OBGYN: Reports: None Neurological: Reports: None Psychiatric: Reports: None Endocrine/Metabolic: Reports: None Hematologic: Reports: None Immunologic: Reports: None Dermatologic: Reports: None Oncologic: Reports: None - Tobacco Use Tobacco Use Status *Q: Current Every Day Tobacco User Years of Tobacco use: 10 Packs/Tins Daily: 0.5 - Caffeine Use Caffeine Use: Reports: Coffee, Soda - Alcohol Use Days Per Week of Alcohol Use: 7 Number of Drinks Per Day: 2 Total Drinks Per Week: 14 - Recreational Drug Use Recreational Drug Use: No - Living Situation & Occupation Living situation: Reports: Occupation: Unemployed ED ROS GENERAL - Review of Systems Review Of Systems: See Below Constitutional: Reports: No Symptoms HEENT: Reports: No Symptoms Respiratory: Reports: No Symptoms Cardiovascular: Reports: No Symptoms Endocrine: Reports: No Symptoms GI/Abdominal: Reports: Diarrhea. Denies: Abdominal Pain, Nausea, Vomiting : Reports: No Symptoms Musculoskeletal: Reports: No Symptoms Skin: Reports: No Symptoms ED EXAM, BEHAVIORAL HEALTH - Physical Exam Exam: See Below Exam Limited By: Intoxication General Appearance: Alert, No Apparent Distress Ears: Normal External Exam Nose: Normal Inspection Head: Atraumatic, Normocephalic Neck: Normal Inspection Respiratory/Chest: No Respiratory Distress, Lungs Clear, Normal Breath Sounds Cardiovascular: Regular Rate, Rhythm, No Edema, No Murmur GI/Abdominal: Soft, Non-Tender, No Organomegaly, No Mass Back Exam: Normal Inspection Extremities: Normal Inspection COURSE, BEHAVIORAL HEALTH COMP - Course Re-Assessment/Re-Exam: I ordered labs and a urine drug screen. Her CBC looks good. Her glucose is elevated at 145. Her AST is elevated at 71. Her ALT is elevated at 75. Her alk phos is elevated at 188. Her TSH is normal. Her salicylates and acetaminophen are normal. Her ETOH is elevated at 0.28. Her COVID is negative. I feel she needs some help. I called [facility] and [facility] and they are both full. [facility] is full and [facility] cannot take her. I had someone from [facility] come see the patient. They called the [facility]. They cannot take her today but they will take her in the morning if both [facility] are full. The would rather have her go there with her medical issues, but if they are full tomorrow, they will take her. It is change of shift. Dr Juan to take over. Departure - Departure Disposition: DC/Tfer to Acute Hospital 02 Clinical Impression: Depressive disorder, Suicidal intent Alcohol intoxication Qualifiers: Complication of substance-induced condition: uncomplicated Qualified Code(s): F10.920 - Alcohol use, unspecified with intoxication, uncomplicated - Discharge Information Referrals: Dorothea Ivory PA-C [Primary Care Provider] - Forms: ED Department Discharge Sepsis Event Note (ED) - Evaluation Sepsis Screening Result: No Definite Risk <Eliceo Juan - Last Filed: 09/18/20 05:59> COURSE, BEHAVIORAL HEALTH COMP - Course Vital Signs: Last Vital Signs Temp 98.7 F 09/17/20 08:42 Pulse 89 09/17/20 08:42 Resp 18 09/17/20 08:42 BP Pulse Ox 98 09/17/20 08:42 Orders, Labs, Meds: Active Orders 24 hr Category Date Time Status Cardiac Monitoring [RC] . DIRECTED Care 09/17/20 09:28 Active Laboratory Tests 09/17/20 09/17/20 09/17/20 Range/Units 09:43 09:43 09:43 WBC 7.03 (3.98-10.04) K/mm3 RBC 3.74 L (3.98-5.22) M/mm3 Hgb 12.1 (11.2-15.7) gm/dl Hct 35.7 (34.1-44.9) % MCV 95.5 H (79.4-94.8) fl MCH 32.4 H (25.6-32.2) pg MCHC 33.9 (32.2-35.5) g/dl RDW Std Deviation 49.0 H (36.4-46.3) fL Plt Count 135 L (182-369) K/mm3 MPV 11.0 (9.4-12.3) fl Neut % (Auto) 48.0 (34.0-71.1) % Lymph % (Auto) 39.5 (19.3-51.7) % Ness % (Auto) 7.7 (4.7-12.5) % Eos % (Auto) 3.8 (0.7-5.8) Baso % (Auto) 0.9 (0.1-1.2) % Neut # (Auto) 3.37 (1.56-6.13) K/mm3 Lymph # (Auto) 2.78 (1.18-3.74) K/mm3 Ness # (Auto) 0.54 H (0.24-0.36) K/mm3 Eos # (Auto) 0.27 (0.04-0.36) K/mm3 Baso # (Auto) 0.06 (0.01-0.08) K/mm3 Sodium 145 (136-145) mEq/L Potassium 3.6 (3.5-5.1) mEq/L Chloride 108 H (98-107) mEq/L Carbon Dioxide 27 (21-32) mEq/L Anion Gap 13.6 (5-15) BUN 21 H (7-18) mg/dL Creatinine 0.7 (0.55-1.02) mg/dL Est Cr Clr Drug Dosing 82.67 mL/min Estimated GFR (MDRD) > 60 (>60) mL/min BUN/Creatinine Ratio 30.0 H (14-18) Glucose 145 H (70-99) mg/dL Calcium 8.7 (8.5-10.1) mg/dL Total Bilirubin 0.4 (0.2-1.0) mg/dL AST 71 H (15-37) U/L ALT 75 H (14-59) U/L Alkaline Phosphatase 188 H (46-116) U/L Total Protein 6.9 (6.4-8.2) g/dl Albumin 3.7 (3.4-5.0) g/dl Globulin 3.2 gm/dL Albumin/Globulin Ratio 1.2 (1-2) TSH 3rd Generation 0.992 (0.358-3.74) uIU/mL Salicylates 2.0 L (2.8-20) mg/dL Urine Opiates Screen (CHHRVD=031) Ur Buprenorphine Scrn (CUTOFF=10) Ur Oxycodone Screen (IYR1FU=090) Urine Methadone Screen (WIUDMF=962) Ur Propoxyphene Screen (DWYTOW=205) Acetaminophen 0 L (10-30) ug/mL Ur Barbiturates Screen (WHHLLO=191) Ur Tricyclics Screen (VTSOJG=068) Ur Phencyclidine Scrn (CUTOFF=25) Ur Amphetamine Screen (LTUVWD=612) U Methamphetamines Scrn (FGMTYZ=973) U Benzodiazepines Scrn (IYKLZU=292) U Cocaine Metab Screen (IRRBWD=070) U Marijuana (THC) Screen (CUTOFF=50) Ethyl Alcohol 0.28 (0.00) gm% SARS-CoV-2 RNA (LOUISA) (NEGATIVE) 09/17/20 09/17/20 09/17/20 Range/Units 09:50 09:54 19:17 WBC (3.98-10.04) K/mm3 RBC (3.98-5.22) M/mm3 Hgb (11.2-15.7) gm/dl Hct (34.1-44.9) % MCV (79.4-94.8) fl MCH (25.6-32.2) pg MCHC (32.2-35.5) g/dl RDW Std Deviation (36.4-46.3) fL Plt Count (182-369) K/mm3 MPV (9.4-12.3) fl Neut % (Auto) (34.0-71.1) % Lymph % (Auto) (19.3-51.7) % Ness % (Auto) (4.7-12.5) % Eos % (Auto) (0.7-5.8) Baso % (Auto) (0.1-1.2) % Neut # (Auto) (1.56-6.13) K/mm3 Lymph # (Auto) (1.18-3.74) K/mm3 Ness # (Auto) (0.24-0.36) K/mm3 Eos # (Auto) (0.04-0.36) K/mm3 Baso # (Auto) (0.01-0.08) K/mm3 Sodium (136-145) mEq/L Potassium (3.5-5.1) mEq/L Chloride (98-107) mEq/L Carbon Dioxide (21-32) mEq/L Anion Gap (5-15) BUN (7-18) mg/dL Creatinine (0.55-1.02) mg/dL Est Cr Clr Drug Dosing mL/min Estimated GFR (MDRD) (>60) mL/min BUN/Creatinine Ratio (14-18) Glucose (70-99) mg/dL Calcium (8.5-10.1) mg/dL Total Bilirubin (0.2-1.0) mg/dL AST (15-37) U/L ALT (14-59) U/L Alkaline Phosphatase (46-116) U/L Total Protein (6.4-8.2) g/dl Albumin (3.4-5.0) g/dl Globulin gm/dL Albumin/Globulin Ratio (1-2) TSH 3rd Generation (0.358-3.74) uIU/mL Salicylates (2.8-20) mg/dL Urine Opiates Screen Negative (UVPZXG=466) Ur Buprenorphine Scrn Negative (CUTOFF=10) Ur Oxycodone Screen Negative (XNK2WX=824) Urine Methadone Screen Negative (NOWPMT=316) Ur Propoxyphene Screen Negative (DMANTC=243) Acetaminophen (10-30) ug/mL Ur Barbiturates Screen Negative (SVGVBC=474) Ur Tricyclics Screen Negative (RDDOXM=384) Ur Phencyclidine Scrn Negative (CUTOFF=25) Ur Amphetamine Screen Negative (PMJJNT=005) U Methamphetamines Scrn Negative (DFEYJV=314) U Benzodiazepines Scrn Negative (SRFEFL=591) U Cocaine Metab Screen Negative (OGPRCF=440) U Marijuana (THC) Screen Negative (CUTOFF=50) Ethyl Alcohol 0.09 (0.00) gm% SARS-CoV-2 RNA (LOUISA) Negative (NEGATIVE) Medications Discontinued Medications Generic Name Dose Route Start Last Admin Trade Name Anita PRN Reason Stop Dose Admin Gabapentin 300 mg 09/18/20 00:28 09/18/20 00:35 Gabapentin 300 Mg Cap PO 09/18/20 00:29 300 mg ONETIME ONE Administration Lorazepam 1 mg 09/17/20 19:40 09/17/20 19:47 Lorazepam 1 Mg Tab PO 09/17/20 19:41 1 mg ONETIME ONE Administration Ondansetron HCl 4 mg 09/18/20 00:24 09/18/20 00:35 Ondansetron 4 Mg Tab.Dis PO 09/18/20 00:25 4 mg ONETIME ONE Administration Re-Assessment/Re-Exam: 19:15.I Have assumed care from Dr James after change of shift. I agree with his hx and exam as documented. Pt has had some dinner. Still upset/angry over difficulty getting resolution of GI problems over the past 1 1/2 yrs. States she still "wants to " States she drinks alcohol to sleep and drank alcohol to get the courage to "kill my self earlier today" 05:55. [facility] does now have a female bed available. I have discussed this with Dr Santos, Psychiatrist instructional design consultant who does accept patient in transfer. She will go by [facility]'s deputies, ground transport this AM. It sounds like they will be available to taker her in about 30 minutes. 24 hour hold paperwork for [facility] will be completed. Departure - Departure Time of Disposition: 06:00 Condition: Fair
[2020-09-17 10:23] LABS: ACETAMINOPHEN 0 ug/mL (10-30)
[2020-09-17] MEDS ORDERED: LORazepam 1 MG Tab PO ONE (19:40)
[2020-09-18] MEDS ORDERED: Ondansetron 4 MG Tab.DIS PO ONE (00:24)
[2020-09-18] MEDS ORDERED: Gabapentin 300 MG Cap PO ONE (00:28)
== END 2020-09-18 06:41 ==
LOC: JD.ED 08:31
DX: F32.9 Major depressive disorder, single episode, unspecified (principal); F10.120 Alcohol abuse with intoxication, uncomplicated; Y90.8 Blood alcohol level of 240 mg/100 ml or more; E11.9 Type 2 diabetes mellitus without complications; K21.9 Gastro-esophageal reflux disease without esophagitis; I10 Essential (primary) hypertension; Z79.4 Long term (current) use of insulin; Z79.899 Other long term (current) drug therapy; Z88.8 Allergy status to other drugs, medicaments and biological substances; Z72.0 Tobacco use; Z20.822 Contact with and (suspected) exposure to COVID-19
CPT/HCPCS: 36415; 80053; 80143; 80179; 80306; 80307; 84443; 85025; 87635; 99285; A9270; 99284; U0002

== ENCOUNTER 2021-09-07 08:24 | Emergency (ER) | payer BC ==
[2021-09-07] MEDS ORDERED: Sodium Chloride 0.9% 10 ML Syringe FLUSH PRN ×2 (08:49→10:12)
[2021-09-07] MEDS ORDERED: Ondansetron 4 MG/2 ML SDV IVPUSH ONE (08:49)
[2021-09-07] MEDS ORDERED: HYDROmorphone 0.5 MG/0.5 ML Syringe IVPUSH ONE (08:50)
[2021-09-07] MEDS ORDERED: Sodium Chloride 0.9% 1,000 ML IV SCH (09:00)
[2021-09-07 09:20] LABS: ESTIMATED GFR 52 mL/min (>60)
[2021-09-07] MEDS ORDERED: Aspirin 81 MG Tab.Chew PO ONE (09:28)
[2021-09-07] MEDS ORDERED: Heparin Sodium 5,000 Units/ML Vial IVPUSH ONE (09:28)
[2021-09-07] MEDS ORDERED: Heparin Sodium/D5W 25,000 UNITS/500 ML BAG IV SCH (09:30)
[2021-09-07] MEDS: Nitroglycerin 0.4 MG Tab.SL SL PRN ×2 (09:36→09:49)
[2021-09-07] MEDS ORDERED: Iopamidol 755 Mg/ML 100 ML Bottle IVPUSH ONE (10:12)
[2021-09-07] MEDS ORDERED: Sodium Chloride 0.9% 100 ML IV SCH (10:15)
[2021-09-07 13:35] VITALS: BP 167/110; PULSE 98
== END 2021-09-07 12:50 ==
LOC: JD.ED 08:24
DX: I21.4 Non-ST elevation (NSTEMI) myocardial infarction (principal); I16.1 Hypertensive emergency; I10 Essential (primary) hypertension; K21.9 Gastro-esophageal reflux disease without esophagitis; E11.9 Type 2 diabetes mellitus without complications; F17.210 Nicotine dependence, cigarettes, uncomplicated; Z88.8 Allergy status to other drugs, medicaments and biological substances; Z79.4 Long term (current) use of insulin; Z79.899 Other long term (current) drug therapy
CPT/HCPCS: 36415; 71045; 71275; 80053; 82947; 83690; 84484; 85025; 86140; 93005; 96365; 96375; 96376; 99285; A9270; J1170; J1644; J2405; J3490; J7030; Q9967; 93010

== ENCOUNTER 2024-01-29 00:33 | Emergency (ER) | payer BC ==
[2024-01-29 00:54] VITALS: BP 176/104
[2024-01-29 00:58] LABS: BASOPHILS ABSOLUTE AUTO 0.1 K/mm3 (0.0-0.2); BASOPHILS PERCENT AUTO 0.9 % (0.0-1.0); EOSINOPHILS ABSOLUTE AUTO 0.1 K/mm3 (0.0-0.4); HEMATOCRIT 44.3 % (37.0-47.0); HEMOGLOBIN 15.8 gm/dl (12.0-16.0); IMMATURE GRAN ABSOLUTE AUTO 0.02 K/mm3 (0.00-0.05); IMMATURE GRAN PERCENT AUTO 0.3 % (0.0-0.4); LYMPHOCYTES ABSOLUTE AUTO 2.5 K/mm3 (1.0-4.8); LYMPHOCYTES PERCENT AUTO 31.8 % (24.0-44.0); MEAN CORPUSCULAR HEMOGLOBIN 32.2 pg (28.0-32.0); MEAN CORPUSCULAR HGB CONC 35.7 g/dl (32.0-36.0); MEAN CORPUSCULAR VOLUME 90.2 fl (83.0-99.0); MEAN PLATELET VOLUME 12.1 fl (9.4-12.3); MONOCYTES ABSOLUTE AUTO 0.7 K/mm3 (0.0-0.8); NEUTROPHILS ABSOLUTE AUTO 4.5 K/mm3 (1.8-7.7); PLATELET COUNT,PLT 129 K/mm3 (150-400); RED BLOOD CELL COUNT 4.91 M/mm3 (4.10-5.30); WHITE BLOOD CELL COUNT,WBC 7.86 K/mm3 (3.9-11.3)
[2024-01-29] MEDS ORDERED: Nitroglycerin/D5W 25 MG/250 ML BOTTLE IV SCH (01:00)
[2024-01-29] MEDS: Aspirin 81 MG Tab.Chew PO ONE (01:03)
[2024-01-29] MEDS: Dextrose 5%-0.9% NaCl 1,000 ML IV SCH (01:04)
[2024-01-29] MEDS: HYDROmorphone 0.5 MG/0.5 ML Syringe IVPUSH ONE (01:04)
[2024-01-29] MEDS: Metoclopramide 10 MG/2 ML SDV IVPUSH ONE (01:06)
[2024-01-29] MEDS: diphenhydrAMINE 50 MG/ML SDV IVPUSH ONE (01:08)
[2024-01-29] MEDS: LORazepam 2 MG/ML SDV IVPUSH ONE (01:10)
[2024-01-29 01:26] LABS: A/G RATIO 1.1 (1-2); ANION GAP 14.2 (5-15); CALCIUM 10.1 mg/dL (8.5-10.1); CREATININE 0.9 mg/dL (0.55-1.02); EST CRCL DRUG DOSING (CG) 59.55 mL/min; MAGNESIUM 1.7 mg/dL (1.8-2.4); POTASSIUM,K 3.2 mEq/L (3.5-5.1); PROTEIN TOTAL,TP 7.6 g/dl (6.4-8.2); TSH 3.504 uIU/mL (0.358-3.74)
[2024-01-29 01:28] LABS: CORONAVIRUS COVID-19 NAA NEGATIVE (NEGATIVE); INFLUENZA A NAA NEGATIVE (NEGATIVE); RESPIRATORY SYNCYTIAL VIR NAA NEGATIVE (NEGATIVE)
[2024-01-29] MEDS: Iopamidol 755 Mg/ML 100 ML Bottle IVPUSH ONE (02:33)
[2024-01-29 05:07] VITALS: PULSE 108
== END 2024-01-29 04:52 | disposition home or self-care (01) ==
LOC: JD.ED 00:33
DX: K44.9 Diaphragmatic hernia without obstruction or gangrene (principal); I10 Essential (primary) hypertension; K21.9 Gastro-esophageal reflux disease without esophagitis; E11.9 Type 2 diabetes mellitus without complications; Z79.4 Long term (current) use of insulin; Z79.899 Other long term (current) drug therapy; Z88.8 Allergy status to other drugs, medicaments and biological substances
CPT/HCPCS: 0241U; 36415; 71045; 71275; 80053; 83735; 84443; 84484; 85025; 85379; 93005; 96361; 96374; 96375; 99285; A9270; J1171; J1200; J2060; J2765; J7042; Q9967

== ENCOUNTER 2024-02-17 19:49 | Emergency (ER) | payer BC ==
[2024-02-17 20:20] LABS: BASOPHILS ABSOLUTE AUTO 0.1 K/mm3 (0.0-0.2); BASOPHILS PERCENT AUTO 0.8 % (0.0-1.0); EOSINOPHILS ABSOLUTE AUTO 0.1 K/mm3 (0.0-0.4); EOSINOPHILS PERCENT AUTO 1.1 % (0.0-6.0); HEMATOCRIT 41.9 % (37.0-47.0); HEMOGLOBIN 14.7 gm/dl (12.0-16.0); IMMATURE GRAN ABSOLUTE AUTO 0.03 K/mm3 (0.00-0.05); IMMATURE GRAN PERCENT AUTO 0.3 % (0.0-0.4); LYMPHOCYTES ABSOLUTE AUTO 3.1 K/mm3 (1.0-4.8); LYMPHOCYTES PERCENT AUTO 28.1 % (24.0-44.0); MEAN CORPUSCULAR HGB CONC 35.1 g/dl (32.0-36.0); MEAN CORPUSCULAR VOLUME 91.3 fl (83.0-99.0); MONOCYTES ABSOLUTE AUTO 0.7 K/mm3 (0.0-0.8); MONOCYTES PERCENT AUTO 6.5 % (0.0-8.0); NEUTROPHILS ABSOLUTE AUTO 6.9 K/mm3 (1.8-7.7); NEUTROPHILS PERCENT AUTO 63.2 % (41.0-71.0); PLATELET COUNT,PLT 161 K/mm3 (150-400); RED BLOOD CELL COUNT 4.59 M/mm3 (4.10-5.30); WHITE BLOOD CELL COUNT,WBC 10.96 K/mm3 (3.9-11.3)
[2024-02-17 20:34] LABS: ALBUMIN 3.9 g/dl (3.4-5.0); BILIRUBIN TOTAL 0.8 mg/dL (0.2-1.0); CALCIUM 9.1 mg/dL (8.5-10.1); EST CRCL DRUG DOSING (CG) 53.6 mL/min; PROTEIN TOTAL,TP 7.8 g/dl (6.4-8.2)
[2024-02-17] MEDS: Alum Hydrox/Mag Hydrox/Simeth 30 ML, Lidocaine 2% 15 ML PO ONE (20:52)
[2024-02-17] MEDS: Aspirin 81 MG Tab.Chew PO ONE (20:52)
[2024-02-17] MEDS: Famotidine 20 MG Tab PO ONE (20:52)
[2024-02-17] MEDS: Labetalol 100 MG/20 ML MDV IVPUSH ONE (20:52)
[2024-02-17] MEDS: Sodium Chloride 0.9% 10 ML Syringe FLUSH PRN (20:53)
[2024-02-17] MEDS: Ondansetron 4 MG/2 ML SDV ONE (21:04)
[2024-02-17] MEDS: Ondansetron 4 MG/2 ML SDV IVPUSH ONE (21:05)
[2024-02-17] MEDS: Morphine 4 MG/ML Syringe IVPUSH ONE (21:52)
[2024-02-17] MEDS: Insulin Regular, Human 100 Units/ML 10 ML Vial IV ONE (21:52)
[2024-02-17] MEDS: Heparin Sodium 5,000 Units/ML Vial IVPUSH ONE (22:25)
[2024-02-17] MEDS: Nitroglycerin 0.4 MG Tab.SL SL PRN (22:28)
[2024-02-17] MEDS: Heparin Sodium/D5W 250 ML IV SCH (22:33)
[2024-02-17] MEDS: diphenhydrAMINE 50 MG/ML SDV IVPUSH ONE (23:15)
[2024-02-17 23:17] VITALS: BP 133/89
[2024-02-17 23:26] VITALS: PULSE 97
== END 2024-02-17 23:24 ==
LOC: JD.ED 19:49
DX: I21.4 Non-ST elevation (NSTEMI) myocardial infarction (principal); E11.65 Type 2 diabetes mellitus with hyperglycemia; I10 Essential (primary) hypertension; R79.89 Other specified abnormal findings of blood chemistry; K21.9 Gastro-esophageal reflux disease without esophagitis; Z88.8 Allergy status to other drugs, medicaments and biological substances; Z79.4 Long term (current) use of insulin; Z79.899 Other long term (current) drug therapy
CPT/HCPCS: 36415; 71045; 76705; 80053; 83690; 84484; 85025; 93005; 96365; 96375; 99285; A9270; J1200; J1644; J1815; J1920; J2270; J2405; J3490; 93010